=== PATIENT | female | born 1995 | race Caucasian/White ===

== ENCOUNTER → 2018-02-01 14:30 | Outpatient (CLI) | payer MEDICAID, SELFPAY ==
[2018-02-01 15:21] LABS: hCG Titer Quant., Serum < 1 mIU/mL (<9 non-preg)
[2018-02-01 15:32] LABS: Progesterone Level 4.85 ng/mL (See Comment)
[2018-02-01 18:47] LABS: Chlamydia Trachomatis by PCR Negative (Negative); Neisserai gonorrhoeae by PCR Negative (Negative); Probe Check PASS; Sample Adequacy Control PASS; Specimen Processing Control PASS
== END ==
PROVIDERS: Visit Provider Obstetrics & Gynecology
DX: Z11.3 Encounter for screening for infections with a predominantly sexual mode of transmission (principal)
CPT/HCPCS: 84144; 84702; 87491; 87591

== ENCOUNTER → 2018-03-29 14:40 | Outpatient (CLI) | payer MEDICAID, SELFPAY ==
[2018-03-29 16:42] LABS: Progesterone Level 9.73 ng/mL (See Comment)
== END ==
PROVIDERS: Visit Provider Obstetrics & Gynecology
DX: N92.6 Irregular menstruation, unspecified (principal); O20.0 Threatened abortion
CPT/HCPCS: 36415; 84144

== ENCOUNTER → 2018-04-05 16:24 | Outpatient (CLI) | payer MEDICAID, SELFPAY ==
[2018-04-05 17:28] LABS: Color, Urine Yellow (Yellow); Glucose, Dipstick Normal (Normal); Ketone-Dipstick Negative (Negative); Leukocyte Esterase-Dipstick Negative /ul (Negative); Nitrite-Dipstick Negative (Negative); Occult Blood-Urine Negative /ul (Negative); Protein-Dipstick Negative (Negative); Urine Bilirubin Dipstick Negative (Negative); Urine Clarity Clear (Clear); Urine Urobilinogen Normal (Normal)
[2018-04-05 17:54] LABS: Amphetamine Urine VISTA NEGATIVE (<1000 ng/mL); Barbiturate Urine VISTA NEGATIVE (< 200 ng/mL); Benzodiazepine Urine VISTA NEGATIVE (< 200 ng/mL); Cocaine Urine VISTA NEGATIVE (< 300 ng/mL); Ecstacy Urine VISTA NEGATIVE (< 500 ng/mL); Methadone Urine VISTA NEGATIVE (< 300 ng/mL); PCP Urine VISTA NEGATIVE (< 25 ng/mL); THC Urine VISTA NEGATIVE (< 50 ng/mL); Vista UDS pH Range 6
[2018-04-05 17:55] LABS: Absolute Lymphocyte Count 2.68 X10^3/ul (0.83-4.51); Absolute Neutrophil Count 11.2 X10^3/uL (2.0-7.7); Basophil# 0.02 X10^3/uL; Basophil% 0.1 % (0-1); Eosinophil# 0.05 X10^3/uL; Eosinophils% 0.3 % (0-5); Hematocrit 39.9 % (37-47); Hemoglobin 13.8 g/dl (12.0-15.0); Lymphocyte # 2.68 X10^3/ul (4.0); Lymphocyte % 17.8 % (19-41); Mean Corp Hgb Conc 34.6 g/gl (32-36); Mean Corpuscular Volume 81.1 fL (81-99); Monocyte# 1.08 X10^3/uL; Monocyte% 7.2 % (0-10); Neutrophil # 11.17 X10^3/uL (2.7-7.7); Neutrophil % 74.1 % (47-70); Platelet Count 334 K/mm3 (150-450); RBC Distribution Width CV 12.5 % (11.6-14.6); RBC Distribution Width SD 36.1 fl (35.1-43.9); Red Blood Count 4.92 M/mm3 (4.2-5.4); White Blood Count 15.1 K/mm3 (4.4-11.0)
[2018-04-05 18:22] LABS: POSITIVE COUNT NO; POSITIVE DIFFERENTIAL NO; POSITIVE MORPHOLOGY NO
[2018-04-05 18:23] LABS: Thyroid Stim Hormone (TSH) 1.03 uIU/mL (0.358-3.74)
[2018-04-05 18:35] LABS: Hemoglobin A1c 5.4 % (4.2-6.3)
[2018-04-05 18:59] LABS: Chlamydia Trachomatis by PCR Negative (Negative); Neisserai gonorrhoeae by PCR Negative (Negative); Probe Check PASS; Sample Adequacy Control PASS; Specimen Processing Control PASS
[2018-04-05 19:01] LABS: HIV - WCH Non-Reactive (Nonreactive); Rubella IgG 55.4 IU/mL; Vitamin D,25 Hydroxy 21.8 ng/mL (29.95-100.01)
[2018-04-08 09:41] LABS: HEPATITIS B SURFACE AG Negative (Negative); Hep C Antibodies 0.1 s/co ratio (0.0-0.9)
[2018-04-10 12:35] LABS: HPV Reflexed? NOT INDICATED
[2018-04-12 00:14] LABS: Prenatal RPR NONREACTIVE (NONREACTIVE)
== END ==
PROVIDERS: Visit Provider Obstetrics & Gynecology
DX: Z34.81 Encounter for supervision of other normal pregnancy, first trimester (principal); Z12.4 Encounter for screening for malignant neoplasm of cervix; Z11.3 Encounter for screening for infections with a predominantly sexual mode of transmission
CPT/HCPCS: 36415; 80307; 81002; 82306; 83036; 84443; 85025; 86703; 86762; 86803; 87340; 87491; 87591; 87624; 88175; G0145

== ENCOUNTER 2018-04-30 17:22 | Emergency (ER) | payer MEDICAID, SELFPAY ==
[2018-04-30 17:23] VITALS: BP 161/101; PULSE 98; RESP 18; TEMP 36.2; O2SAT 100; BMI 30.5
[2018-04-30 17:42] LABS: Bacteria 0 SEEN /hpf (None Seen); Mucous, Urine 0 SEEN /hpf (<or=2+); Red Blood Cells-Urine 0 SEEN /hpf (0-5)
[2018-04-30 17:52] LABS: Color, Urine Yellow (Yellow); Glucose, Dipstick Normal (Normal); Ketone-Dipstick Negative (Negative); Leukocyte Esterase-Dipstick Negative /ul (Negative); Nitrite-Dipstick Negative (Negative); Occult Blood-Urine Negative /ul (Negative); Protein-Dipstick Negative (Negative); Urine Bilirubin Dipstick Negative (Negative); Urine Clarity Clear (Clear); Urine Urobilinogen Normal (Normal)
[2018-04-30 18:00] VITALS: BP 141/101
[2018-04-30 18:00] LABS: Squamous Epithelial Cells - UA 0-5 SEEN /hpf (5-10); White Blood Cells 0-5 SEEN /hpf (0-5)
[2018-04-30 18:21] LABS: Absolute Lymphocyte Count 2.35 X10^3/ul (0.83-4.51); Absolute Neutrophil Count 8.9 X10^3/uL (2.0-7.7); Basophil# 0.02 X10^3/uL; Basophil% 0.2 % (0-1); Eosinophils% 0.8 % (0-5); Hematocrit 37.8 % (37-47); Hemoglobin 12.9 g/dl (12.0-15.0); Lymphocyte # 2.35 X10^3/ul (4.0); Lymphocyte % 18.9 % (19-41); Mean Corp Hgb Conc 34.1 g/gl (32-36); Mean Corpuscular Hgb 28.2 pg (27.0-32.0); Mean Corpuscular Volume 82.5 fL (81-99); Mean Platelet Vol. 8.7 fl (6.2-12.0); Monocyte# 1.05 X10^3/uL; Monocyte% 8.4 % (0-10); Neutrophil # 8.87 X10^3/uL (2.7-7.7); Neutrophil % 71.3 % (47-70); Platelet Count 252 K/mm3 (150-450); RBC Distribution Width CV 12.8 % (11.6-14.6); RBC Distribution Width SD 38.4 fl (35.1-43.9); Red Blood Count 4.58 M/mm3 (4.2-5.4); White Blood Count 12.4 K/mm3 (4.4-11.0)
[2018-04-30 18:25] LABS: POSITIVE COUNT NO; POSITIVE DIFFERENTIAL NO; POSITIVE MORPHOLOGY NO
[2018-04-30 18:32] LABS: Anion Gap 8 (5-15); BUN 4 mg/dL (7-18); BUN/Creat Ratio 6.4 RATIO (10-20); Calcium,Total 8.9 mg/dL (8.5-10.1); Chloride 106 mmol/L (98-107); Creatinine, Serum 0.62 mg/dL (0.55-1.02); EST Glomerular Filtration Rate 126 mL/min (>60); Est Glom Filt Rate - Afr Amer 153 mL/min (>60); Glucose 94 mg/dL (74-106); Potassium 4.1 mmol/L (3.5-5.1); Sodium Level 135 mmol/L (136-145)
[2018-04-30] MEDS: 0.9% Normal Saline 1,000 ML 150 ML IV (18:53)
[2018-04-30] MEDS: Morphine 4 MG/ML Syringe IV (18:53)
[2018-04-30] MEDS: Ondansetron 4 MG/2 ML Vial IV (18:53)
[2018-04-30 19:05] VITALS: BP 120/90; PULSE 84; RESP 18; TEMP 36.9; O2SAT 100
[2018-04-30 19:06] VITALS: BP 120/90
--- NOTE | 2018-04-30 19:52 | ED.RN ---
us at bedside for dr. menendez to observe fetus.
--- NOTE | 2018-04-30 19:53 | ED.DCSUM_ITS ---
- ER Visit Summary Date of Service: 04/30/18 Chief Complaint: Abdominal pain History of Present Illness: The patient is a 22 F with a low-grade temperature approximately 99 for the past couple of weeks. States she overall just did not feel well. She had nausea and vomiting for 3 days but that seemed to resolve. Today she complained of abdominal pain and points to both epigastric as well as right lower quadrant area. Patient is currently 10 weeks . She has not had bleeding or spotting. She called the nurse for her RETAIL DEPARTMENT MANAGER who encouraged her to come in to make sure she did not have appendicitis. Physical Examination: Vital signs significant for blood pressure of 161/101, otherwise unremarkable. Patient is lying in bed no acute distress. Head neck examination normal. Heart is regular rate and rhythm. Lungs sounds are clear. Abdomen is soft with epigastric tenderness. On initial exam there is no significant right lower tenderness. There is no guarding or rebound. Test Results: CBC was a white count 12.4 with no significant left shift. C hemistry studies normal. LFTs normal. Urinalysis normal. Emergency Department Course and Treatment: Patient was given morphine, Zofran, followed by Phenergan for continued nausea. Blood pressures have been labile throughout her ED stay with readings of 150/93, 120/90, 141/101, 126/90. Bedside ultrasound was performed and cardiac motion is noted in the fetus. Test results are discussed with patient and at bedside. At this time they would prefer to avoid radiation from CT scan if at all possible. I spoke with Dr. Sam, on-call for the patient's RETAIL DEPARTMENT MANAGER. She will see the patient in the office tomorrow for repeat abdominal exam. If symptoms are not improved or worsened at that time, she will contact surgery for evaluation. Treatment Plan: [] Disposition: Discharge Impression: 1. Abdominal pain 2. First trimester This note was generated with [employer] dictation software. It may contain incorrect words, spelling, and punctuation that were not noted in review of the chart prior to signing ED Disposition - Plan for ED Patient: Disposition: Home or Assisted Living Instructions: ED Abdominal Pain Appendx Poss Referrals: Daiana Sam MD [STAFF PHYSICIAN] - 1 Day
[2018-04-30 19:55] LABS: AST(SGOT) 28 U/L (15-37); Alanine Aminotransfer ALT/SGPT 23 U/L (13-56); Albumin, Serum 3.2 g/dL (3.2-5.0); Alkaline Phosphatase 91 U/L (45-117); Bilirubin, Direct 0.07 mg/dL (0.00-0.30); Globulin 4.1 g/dL (2.2-4.2); Lipase 162 U/L (73-393); Protein, Total 7.3 g/dL (6.4-8.2)
[2018-04-30 20:23] VITALS: BP 150/93; PULSE 83; RESP 15; TEMP 36.8; O2SAT 100
[2018-04-30] MEDS: proMETHazine 25 MG/ML Syringe 6.25 MG IV (20:24)
--- NOTE | 2018-04-30 21:15 | DCINST.ED_ITS ---
ED Disposition - Plan for ED Patient: Disposition: Home or Assisted Living Instructions: ED Abdominal Pain Appendx Poss Referrals: Daiana aSm MD [STAFF PHYSICIAN] - 1 Day
--- NOTE | 2018-04-30 21:15 | ED.DEP ---
ED Disposition - Plan for ED Patient: Disposition: Home or Assisted Living Instructions: ED Abdominal Pain Appendx Poss Referrals: Daiana Sam MD [STAFF PHYSICIAN] - 1 Day
[2018-04-30] MEDS: Ondansetron ODT 4 MG Tablet PO (21:34)
[2018-04-30 21:40] VITALS: BP 120/74; PULSE 79; RESP 17; O2SAT 100
--- NOTE | 2018-04-30 21:41 | ED.RN ---
IV DC'ED, CATHETER INTACT, SMALL GAUZE DRESSING PLACED. DISCHARGE INSTRUCTIONS GIVEN TO AND REVIEWED WITH PATIENT, PATIENT DENIES QUESTIONS OR CONCERNS AND VOICES UNDERSTANDING OF DISCHARGE INSTRUCTIONS. PT AMBULATES OUT OF ROOM WITHOUT DIFFICULTY.
== END 2018-04-30 21:42 | disposition home or self-care (01) ==
PROVIDERS: Emergency Provider Emergency Medicine
DX: O26.891 Other specified pregnancy related conditions, first trimester (principal); R10.9 Unspecified abdominal pain; Z3A.10 10 weeks gestation of pregnancy
CPT/HCPCS: 80048; 80076; 81001; 83690; 85025; 96361; 96374; 96375; 99283; J7030; A4216; J2405

== ENCOUNTER 2018-06-04 16:59 | Emergency (ER) | payer MEDICAID, SELFPAY ==
[2018-06-04 17:00] VITALS: BP 147/90; PULSE 104; RESP 16; TEMP 36.1; O2SAT 100; BMI 30.5
--- NOTE | 2018-06-04 17:32 | ED.DCSUM_ITS ---
- ER Visit Summary Date of Service: 06/04/18 Chief Complaint: Periumbilical abdominal discomfort History of Present Illness: The patient is a 22 F currently 16 weeks. Ab0. Under the care of Dr. Adrian Albert of [employer] IN [employer]PER[employer]. Patient's had intermittent periumbilical abdominal pain for weeks. She states that more stabbing today. She denies any dysuria. Currently no vaginal bleeding. States that she has had an ultrasound showing a live intrauterine . Denies any discharge. No fever. No right lower quadrant abdominal pain. She has had some nausea without vomiting or diarrhea. States she has not a bowel movement for approximately a week. Physical Examination: Well-appearing young female. Vital signs are stable. She is afebrile. She is in no distress. H EENT exam normal. Moist his membranes. Neck nontender no lymphadenopathy. Lungs clear to auscultation bilaterally. Heart regular rate and rhythm no murmur. Abdomen soft. Nondistended. Normal bowel sounds no peritoneal signs. Gravid nontender uterus. She describes his pain is periumbilical. It is really not tender. Both the right upper and right lower quadrants are completely nontender. No McBurney's point tenderness. No hernias or masses. No signs of obstruction. Soft with normal bowel sounds. She is moving all 4 extremities. Neurovascular intact. Calves nontender without edema. Back is nontender. Neurologically she is awake alert with no focal motor deficits. Test Results: heart tones equal nurse was unable but on transvaginal ultrasound showed a single live IUP with a heart rate of 146. Otherwise no acute abnormalities read by the radiology Urinalysis shows no acute abnormality. No infection. Emergency Department Course and Treatment: Clinically patient has a benign exam. Her history is consistent with constipation. I do not want to obtain a KUB at this time due to her . Repeat exam at 2109 patient is doing well. She will be discharged home. Follow-up with her L[employer] IN SUPERVISOR. Treatment Plan: Prune juice and fiber for constipation. Disposition: Discharge Impression: Abdominal pain secondary to constipation 16 weeks This note was generated with [employer] dictation software. It may contain incorrect words, spelling, and punctuation that were not noted in review of the chart prior to signing ED Disposition - Plan for ED Patient: Referrals: NOT,DEFINED [NON-STAFF] -
--- NOTE | 2018-06-04 17:47 | US_ITS ---
STUDY: SECOND AND THIRD TRIMESTER OBSTETRICAL ULTRASOUND - LIMITED REASON FOR EXAM: Female, 22 years old. Right lower quadrant pain extending to the umbilicus LMP: 02/13/2018 PRIOR ULTRASOUND: None. TECHNIQUE: Transabdominal TECHNICAL QUALITY: Adequate. FINDINGS: There is a single intrauterine fetus. The fetus is in a breech presentation. There is demonstrated cardiac activity with a heart rate of 146 bpm. There is a normal amniotic fluid volume. The largest amniotic fluid pocket measures 8.0 x 3.1 cm. The amniotic fluid index (RADHA) was not calculated. The placenta is anterior in location and is not low lying. The cervix measures 3.1 cm in length. BIOMETRY: BPD: 3.46 cm: 16 weeks, 5 days HC: 13.18 cm: 16 weeks, 6 days AC: 10.27 cm: 16 weeks, 2 days FL: 1.8 cm: 15 weeks, 3 days Age by ultrasound: 16 weeks, 3 days. MARITZA by LMP: 11/16/2018. age by LMP: 15 weeks, 6 days. MARITZA by current US: 11/20/2018. Estimated weight: 139 grams, +/- 20 grams, 45th percentile. Imaging of the bilateral adnexa show no obvious cystic or solid mass. Both maternal ovaries are normal in appearance. No focal fluid collection is seen. A localized muscular contraction of the anterior uterus is identified on a couple of the images. US/OB Limited With Biometrics IMPRESSION: 1. Single live intrauterine , as above. Of note, a full anatomic survey was NOT performed. 2. No obvious adnexal masses. Electronically Signed: Pablo Staton MD at 19:39 EDT , Service support ,
[2018-06-04 17:53] LABS: Bacteria 0 SEEN /hpf (None Seen); Mucous, Urine 0 SEEN /hpf (<or=2+); Red Blood Cells-Urine 0 SEEN /hpf (0-5); White Blood Cells 0 SEEN /hpf (0-5)
[2018-06-04 17:56] LABS: Color, Urine Yellow (Yellow); Glucose, Dipstick Normal (Normal); Ketone-Dipstick Negative (Negative); Leukocyte Esterase-Dipstick Negative /ul (Negative); Nitrite-Dipstick Negative (Negative); Occult Blood-Urine Negative /ul (Negative); Protein-Dipstick Negative (Negative); Urine Bilirubin Dipstick Negative (Negative); Urine Clarity Clear (Clear); Urine Urobilinogen Normal (Normal); Urine pH 6.5 (5.0 - 8.0)
[2018-06-04 18:03] LABS: Squamous Epithelial Cells - UA 0-5 SEEN /hpf (5-10)
--- NOTE | 2018-06-04 21:12 | ED.DEP ---
ED Disposition - Plan for ED Patient: Disposition: Home or Assisted Living Instructions: ED Constipation Referrals: Jennifer Dubon MD [STAFF PHYSICIAN] - 3-5 Days if not improving Additional Instructions: Plenty of fruits, fiber and fluids for your constipation. Bottle of magnesium citrate and should have a bowel movement within 2-4 hours. Follow-up with your PATHOLOGY LABORATORY AIDE if not improving. Your ultrasound was normal and your urinalysis was normal also.
[2018-06-04 21:32] VITALS: PULSE 79; RESP 18; O2SAT 99
[2018-06-04] MEDS: Magnesium Citrate 300 ML PO (21:32)
--- NOTE | 2018-06-04 21:33 | ED.RN ---
THIS NURSE REVIEWED D/C INSTRUCTIONS WITH PT. PT VERBALIZED UNDERSTANDING OF INSTRUCTIONS. [facility] SENT HOME WITH PT PER DR BRITTON INSTRUCTIONS. PT DENIES FURTHER NEEDS OR QUESTIONS AT THIS TIME. PT AMBULATES FROM ROOM ON OWN WITHOUT ASSISTANCE FROM STAFF
== END 2018-06-04 21:34 | disposition home or self-care (01) ==
PROVIDERS: Emergency Provider Emergency Medicine; Family Provider Physician Assistant; PCP Physician Assistant
DX: O26.892 Other specified pregnancy related conditions, second trimester (principal); K59.00 Constipation, unspecified; Z3A.16 16 weeks gestation of pregnancy
CPT/HCPCS: 76816; 81001; 99282

== ENCOUNTER → 2018-06-24 15:48 | Outpatient (CLI) | payer MEDICAID, SELFPAY ==
[2018-06-04 17:00] VITALS: BMI 30.5
== END ==
PROVIDERS: Family Provider Physician Assistant; PCP Physician Assistant; Referring Provider Obstetrics & Gynecology; Visit Provider Obstetrics & Gynecology
DX: Z34.82 Encounter for supervision of other normal pregnancy, second trimester (principal)

== ENCOUNTER 2018-07-01 16:22 | Emergency (ER) | payer MEDICAID, SELFPAY ==
[2018-07-01 16:22] VITALS: BP 138/81; PULSE 116; RESP 18; TEMP 36.4; O2SAT 100; BMI 29.5
[2018-07-01] MEDS: 0.9% Normal Saline 1,000 ML 1000 ML IV ×2 (17:06→17:50)
[2018-07-01] MEDS: proMETHazine 25 MG/ML Syringe 6.25 MG IV (17:06)
[2018-07-01] MEDS: Dicyclomine 20 MG/2 ML Vial IM (17:08)
[2018-07-01 17:21] LABS: Absolute Lymphocyte Count 0.53 X10^3/ul (0.83-4.51); Basophil# 0.01 X10^3/uL; Basophil% 0.1 % (0-1); Eosinophil# 0.02 X10^3/uL; Eosinophils% 0.1 % (0-5); Hematocrit 37.9 % (37-47); Hemoglobin 13.3 g/dl (12.0-15.0); Lymphocyte # 0.53 X10^3/ul (4.0); Lymphocyte % 3.2 % (19-41); Mean Corp Hgb Conc 35.1 g/gl (32-36); Mean Corpuscular Hgb 29.1 pg (27.0-32.0); Mean Corpuscular Volume 82.9 fL (81-99); Mean Platelet Vol. 8.8 fl (6.2-12.0); Monocyte# 0.87 X10^3/uL; Monocyte% 5.3 % (0-10); Neutrophil # 14.97 X10^3/uL (2.7-7.7); Neutrophil % 90.8 % (47-70); Platelet Count 206 K/mm3 (150-450); RBC Distribution Width CV 13.4 % (11.6-14.6); RBC Distribution Width SD 40.3 fl (35.1-43.9); Red Blood Count 4.57 M/mm3 (4.2-5.4); White Blood Count 16.5 K/mm3 (4.4-11.0)
[2018-07-01 17:22] LABS: Anion Gap 9 (5-15); BUN 6 mg/dL (7-18); Calcium,Total 8.5 mg/dL (8.5-10.1); Chloride 106 mmol/L (98-107); Creatinine, Serum 0.67 mg/dL (0.55-1.02); Differential Indicated SCAN CRITERIA MET; EST Glomerular Filtration Rate 117 mL/min (>60); Est Glom Filt Rate - Afr Amer 141 mL/min (>60); Estimated Creatinine Clearance 113.73 ml/min; Glucose 89 mg/dL (74-106); POSITIVE COUNT NO; POSITIVE DIFFERENTIAL YES; POSITIVE MORPHOLOGY NO; Potassium 3.9 mmol/L (3.5-5.1); Sodium Level 137 mmol/L (136-145)
[2018-07-01 17:38] LABS: Bacteria 0 SEEN /hpf (None Seen); Red Blood Cells-Urine 0 SEEN /hpf (0-5)
--- NOTE | 2018-07-01 17:40 | ED.VISSUMM ---
- ER Visit Summary Date of Service: 07/01/18 Chief Complaint: [Vomiting and diarrhea] History of Present Illness: The patient is a 22 F [presents the emergency department with vomiting and diarrhea that started around 8 AM. Patient states she is thrown up about 7 times and has had approximately 8 watery stools. Patient describes diffuse abdominal pain and cramping. She tells me she is 20 weeks . Patient also states that her 3-year-old son started with the same illness around 3 AM but he is better already. Patient has not felt the baby move in several hours. She states she has had some mild vaginal spotting which is not been unusual for her as she is had a throughout her . She describes a cramping as kind of diffuse and all over her abdomen. Patient states she could not get comfortable because of the cramping earlier in the day. She denies any fevers. She denies urinary symptoms.] Physical Examination: [HEENT-PERRLA, EOMI. Cranial nerves II through XII grossly intact. TMs clear. Mucous membranes slightly dry. No adenopathy. Cardiovascular-regular rate and rhythm without murmur or ectopy Lungs-clear to auscultation, chest wall stable without crepitus or subcu emphysema Abdomen-normoactive bowel sounds, soft.. Patient has mild diffuse tenderness. There is no rebound, rigidity, or perineal signs. Extremities-intact ?4, normal range of motion, normal pulses, atraumatic] Test Results: [CBC with differential showed a white count of 16.5, hemoglobin 13, hematocrit 38, 0.06. Chemistries unremarkable. heart tones were 150. From prior visits it was noted that patient is O+ blood type.] Emergency Department Course and Treatment: [Patient received 2 L normal saline fluid boluses. Patient was given Phenergan and Bentyl. Overall was improved and she had no further vomiting. I did discuss case with Dr. Wesley Perez who is on-call for COMPUTER GRAPHICS ILLUSTRATOR who did not feel any further monitoring of the patient was indicated at this time. ] Treatment Plan: [Will be given a prescription for Bentyl and Phenergan. Patient advised to push fluids. Patient advised to return if worsening abdominal pain, fever, vomiting, dehydration, or condition should worsen anyway.] Disposition: [Discharged home in stable condition] Impression: [Viral gastroenteritis] This note was generated with Dragon dictation software. It may contain incorrect words, spelling, and punctuation that were not noted in review of the chart prior to signing ED Disposition - Plan for ED Patient: Referrals: Raymond Green PA [Primary Care Provider] -
[2018-07-01 17:44] LABS: Differential Comment SCANNED
--- NOTE | 2018-07-01 17:44 | ED.DEP ---
ED Disposition - Plan for ED Patient: Instructions: ED Gastroenteritis Viral Prescriptions: proMETHazine tablet [Phenergan] 25 mg PO Q6H PRN PRN #10 tab PRN Reason: Nausea Dicyclomine HCl [Bentyl] 20 mg PO TIDAC #20 cap Referrals: Raymond Green PA [Primary Care Provider] - Jennifer Dubon MD [STAFF PHYSICIAN] - 3-5 Days
[2018-07-01 18:00] LABS: Color, Urine Yellow (Yellow); Glucose, Dipstick Normal (Normal); Leukocyte Esterase-Dipstick Negative /ul (Negative); Nitrite-Dipstick Negative (Negative); Occult Blood-Urine Negative /ul (Negative); Protein-Dipstick 30 mg/dl (Negative); Specific Gravity, Urine 1.025 (1.002-1.030); Urine Bilirubin Dipstick Negative (Negative); Urine Clarity Clear (Clear); Urine Urobilinogen Normal (Normal)
[2018-07-01 18:01] LABS: Ketone-Dipstick 150 mg/dl (Negative)
[2018-07-01 18:37] VITALS: PULSE 83; RESP 16
[2018-07-01 19:13] LABS: Mucous, Urine 2+ /hpf (<or=2+)
[2018-07-01 19:15] LABS: Squamous Epithelial Cells - UA 0-5 SEEN /hpf (5-10); Transitional Epithelial - Ur 0 SEEN /hpf (0-5); White Blood Cells 0-5 SEEN /hpf (0-5)
[2018-07-01] MEDS: proMETHazine 25 MG/ML Syringe 12.5 MG IV (19:36)
[2018-07-01] MEDS: Morphine 2 MG/ML Syringe IV (19:36)
[2018-07-01 21:06] VITALS: BP 117/67; PULSE 103; RESP 16; O2SAT 100
== END 2018-07-01 21:10 | disposition home or self-care (01) ==
LOC: ED 16:38
PROVIDERS: Emergency Provider Emergency Medicine; Family Provider Physician Assistant; PCP Physician Assistant
DX: O98.512 Other viral diseases complicating pregnancy, second trimester (principal); A08.4 Viral intestinal infection, unspecified; Z3A.20 20 weeks gestation of pregnancy
CPT/HCPCS: 80048; 81001; 85025; 87086; 87088; 96361; 96372; 96374; 96375; 96376; 99284; J7030; A4216

== ENCOUNTER 2018-07-13 17:05 | Outpatient (CLI) | payer MEDICAID, SELFPAY ==
--- OUTSIDE RECORDS SUMMARY | 2018-07-13 17:17 | XMS RPT_ITS | CCD ---
:1995 External Reference #:[id number] Author Organization [facility] Care Team Providers Name Role Phone Unavailable Unavailable Unavailable Allergies Reported Allergen Reaction(s) Severity Date of Onset Location cefdinir [facility], Critical 11-15-2017 - [facility] [place] ([id number]) cefdinir AOF 07-12-2011 - [facility] Translations: [ [facility] CEFDINIR] Repository CEFFTON [facility] 11-15-2017 - [facility] - [facility] [place] ([id number]) cefuroxime AOF 06-24-2014 - [facility] Translations: [ Other [place] CEFUROXIME AXETIL] Repository Medications Medication Name Sig Date Prescriber Location amoxicillin / AUGMENTIN 500-125 11-16-2017 [facility] clavulanate MG TABS Take one [facility] tablet twice a day - [facility] AMOXICILLIN-POT ([id number]) CLAVULANATE [id number] [facility] clindamycin CLINDAMYCIN HCL 150 11-15-2017 Mera José [facility] MG CAPS take one PA-C [facility] tablet 4 times per - Quick Care day [place] (44383) CLINDAMYCIN HCL [id number] Mera José PA-C CLINDAMYCIN HCL 150 MG 11-15-2017 Mera José PA-C [facility] CAPS take one tablet 4 [facility] - times per day [facility] [place] CLINDAMYCIN HCL (68161) [id number] Mera José PA-C naproxen NAPROSYN 500 MG TABS take once 11-15-2017 [facility] Orth[facility]edic daily NAPROXEN Center - [facility] [place] [phone] Mera José ([id number]) PA-C NAPROSYN 500 MG TABS take once daily 11-15-2017 [facility] [place] - NAPROXEN [id number] [facility] [place] (77939) Mera José PA-C sulfamethoxazole / BACTRIM DS 800-160 MG TABS Take 11-16-2017 [facility] trimethoprim 1 tablet twice a day [facility] SULFAMETHOXAZOLE-TRIMETHOPRIM [facility] Center - [phone] [facility] (06700) traMADol TRAMADOL HCL 50 MG TABS take 11-15-2017 [facility] twice a day TRAMADOL [facility] HCL [id number] [facility]-C [facility] [place] (18126) TRAMADOL HCL 50 MG TABS take twice a 11-15-2017 [facility] [place] - day TRAMADOL HCL Quick [facility] [place] (51731) [id number] Mera José PA-C Problems Active Problems Category Problem Name Status Date Location Abdominal pain Unspecified abdominal Active 01-29-2018 [facility] pain (02473) Hemorrhage during Threatened Active 03-29-2018 [facility] ; abruptio (24920) placenta; placenta previa Mood disorders Major depressive Active 06-16-2017 [facility] disorder, recurrent, (36688) mild Nausea and vomiting Nausea Active 01-13-2018 - [facility] (33939) Other complications of Other specified Active 03-25-2018 [facility] related (99863) conditions, first trimester Other complications of Other specified Active 03-25-2018 [facility] related (79532) conditions, first trimester Other connective tissue Prepatellar bursitis Active 11-15-2017 - [facility] disease [facility] [place] [facility] [place] (90706) Other upper respiratory Acute pansinusitis, Active 03-25-2018 [facility] infections unspecified (08544) Residual codes; Less than 8 weeks Active 03-25-2018 [facility] unclassified gestation of (62453) Past or Other Problems Category Problem Name Status Date Location Allergic reactions Allergy status to Completed 11-13-2017 [facility] other drugs, (29965) medicaments and biological substances status Other connective Prepatellar Completed 11-13-2017 [facility] tissue disease bursitis, right knee (08661) Other connective Prepatellar Completed 11-13-2017 - [facility] tissue disease bursitis, right knee (70667) Other non-traumatic Pain in right knee Completed 11-13-2017 - [facility] joint disorders (41645) Other non-traumatic Pain in right knee Completed 11-13-2017 - [facility] joint disorders (24646) Residual codes; Less than 8 weeks 03-25-2018 - [facility] unclassified gestation of (05031) Unclassified Problem [facility] (58162) Results Result Name Value Range Unit Interpretation Flag Date Location clinical summary: hmspatientid on null OOP Invalid 11-16-2017 - [facility] Interpretation Code 11-16-2017 [facility] (29889) QCO Invalid 11-15-2017 [facility] Interpretation Code 11-15-2017 [facility] (35333) ed note on 2018-03-29 ED NOTE HNO ID: [id number]: Trudi Normal 03-29-2018 [facility] ([id number]) (Rn) LLOYD Duncanervice: NursingAuthor Type: Registered NurseType: ED NotesFiled: 03/29/2018 4:13 AMNote Text: VSS, IV removed. Patient is aware of discharge papers, follow up care andwhen to seek medical attention. She states that her father in law is inthe waiting room and will take her home and be supportive for her. Ptambulated in stable condition to leave ER. ED NOTE HNO ID: [id number] Normal 03-29-2018 [facility] (54679) Author: Trudi (Rn) [place] RN Service: Nursing Author Type: Registered Nurse Type: ED Notes Filed: 03/29/2018 3:21 AM Note Text: U/S at bs. ED NOTE HNO ID: [id number]: Normal 03-29-2018 [facility] (46067) Marium (Rn) LLOYD Sousaervice: NursingAuthor Type: Registered NurseType: ED NotesFiled: 03/29/2018 1:03 AMNote Text:Patient is 6 weeks . Had appoint with PCP to confirm .Patient noticed large amount of blood to toilet paper when she wiped usingthe bathroom one hour ago. Nothing in her under wear. Reports a littlecramping. type and screen on 2018-03-29 ABO/RH(D) O POSITIVE Normal 03-29-2018 [facility] (78637) Comment: Performed By: #### JOS COPELAND CMP ####[facility] [id number] [phone] ed prov note on 2018-03-29 Protein mass HNO ID: [id number]: Giuliano Normal 03-29-2018 [place] JUANIS Khalilervice: (none)Author Hospital Type: PhysicianType: ED Provider ([id number]) NotesFiled: 03/29/2018 3:49 AMNote Text:ED Provider NotePatient Name: Malena PosadaskatjagMRN: [id number] DATE: 03/29/18HistoryPatient presents with:Bleeding With PregnancyHistory provided by: PatientLanguage wastewater superintendent used: NoVaginal BleedingQuality: Bright redSeverity: MildOnset quality: SuddenTiming: ConstantProgression: UnchangedChronicity: NewPossible : yesContext: not after intercourse, not after urination, not at rest, notduring intercourse, not during urination, not foreign body, not genitaltrauma and not spontaneouslyRelieved by: NothingWorsened by: NothingIneffective treatments: None triedAssociated symptoms: no abdominal pain, no back pain, no dizziness, nodyspareunia, no dysuria, no fatigue, no fever, no nausea and no vaginaldischargeRisk factors: no bleeding disorder, no hx of ectopic , no hx ofendometriosis, no gynecological surgery, does not have multiple partners,no new sexual partner, no ovarian cysts, no ovarian torsion, no PID, noprior miscarriage and no terminated pregnanciesPAST MEDICAL HISTORYDiagnosis Date- NEGATIVE MEDICAL HISTORY- Trauma 02/07/[address] walking dogPAST SURGICAL HISTORYProcedure Laterality Date- NONEFAMILY HISTORYProblem Relation Age of Onset- Hypertension Mother- Hypertension FatherSocial HistorySocial History Main Topics- Smoking status: Never Smoker- Smokeless tobacco: Never Used- Alcohol use No- Drug use: No- Sexual activity: Yes Partners: Male control/ protection: CondomALLERGIESAllergen Reactions- Ceftin [Cefuroxime * GI Upset, Other: See Comments dizziness- Omnicef [Cefdinir] GI UpsetReview of SystemsConstitutional: Negative. Negative for fatigue and fever.HENT: Negative.Eyes: Negative.Respiratory: Negative.Cardiovascular: Negative.Gastrointestinal: Negative. Negative for abdominal pain and nausea.Genitourinary: Positive for vaginal bleeding. Negative for dyspareunia,dysuria and vaginal discharge.Musculoskeletal: Negative. Negative for back pain.Skin: Negative.Neurological: Negative. Negative for dizziness.Psychiatric/Behavioral: Negative.Physical ExamBP 141/88 Pulse 92 Temp (Src) 97.4 (Oral) Resp 16 Wt 178 lb(80.7kg) SpO2 100%Physical ExamConstitutional: She is oriented to person, place, and time. Vital signsare normal. She appears well-developed and well-nourished. She is active.HENT:Head: Normocephalic and atraumatic.Right Ear: External ear normal.Left Ear: External ear normal.Nose: Nose normal.Mouth/Throat: Oropharynx is clear and moist.Eyes: Pupils are equal, round, and reactive to light. Conjunctivae, EOMand lids are normal. Lids are everted and swept, no foreign bodies found.Neck: Trachea normal and normal range of motion. Neck supple.Cardiovascular: Normal rate, regular rhythm, normal heart sounds andintact distal pulses.Pulmonary/Chest: Effort normal and breath sounds normal.Abdominal: Soft. Bowel sounds are normal.Musculoskeletal: Normal range of motion.Neurological: She is alert and oriented to person, place, and time. Shehas normal strength and normal reflexes. No cranial nerve deficit orsensory deficit. She displays a negative Romberg sign. GCS eye subscore is4. GCS verbal subscore is 5. GCS motor subscore is 6.Skin: Skin is warm and dry.Psychiatric: She has a normal mood and affect.Nursing note and vitals reviewed.Diagnostic TestingED Labs Ordered and ReviewedCBC + DIFF - Abnormal; Notable for the following: Result Value Ref Range WBC 15.23 (*) 3.70 - 11.00 k/uL MPV 8.6 (*) 9.0 - 12.7 fL Abs Neut (ANC) 10.05 (*) 1.45 - 7.50 k/uL Abs [place] 1.26 (*) <0.87 k/uL All other components within normal limitsHCG QUAL BLDCOMP METABOLIC PANELProceduresED Course / Clinical ImpressionMDM / Disposition / [id number]-irgs-bim female says she is 6 weeks with some vaginal spottingthat started today apparently says that in January she had a pregnancytest that was positive although I can't find a positive test inNovember, she comes in stating she's been spotting she told me that she isconfirmed by her primary care doctor 6 weeks ago however alsotold the nurses that she has an appointment with her PCP to confirm thepregnancy. No chest pain or shortness of breath no fevers chills nauseavomiting or diarrhea no double vision or blurry vision no numbness ortingling no other constitutional signs or symptomsPhysical examAfebrile vital signs are stableCardiac regular rate rhythm S1-S2 rubs murmurs gallopsPulmonary exam clear to auscultation no rales rhonchi or cracklesAbdomen is soft nontender nondistended bowel sounds present nohepatosplenomegalyLymphatics no adenopathyMuscular skeletal no cyanosis clubbing edemaSkin clean dry and intactNeurological exam is otherwise nonfocalCCU labs ordered and a serum qualitative test is been orderedResults for orders placed or performed during the hospital encounter of03/29/18-HCG QUAL BLD Result Value Ref Range HCG, Qualitative Positive (A) Negative-COMP METABOLIC PANEL Result Value Ref Range Protein, Total 7.0 6.3 - 8.0 g/dL Albumin 4.2 3.9 - 4.9 g/dL Calcium 9.1 8.5 - 10.2 mg/dL Bilirubin, Total 0.2 0.2 - 1.3 mg/dL Alkaline Phosphatase 103 34 - 123 U/L AST 16 13 - 35 U/L Glucose 96 74 - 99 mg/dL BUN 5 (L) 7 - 21 mg/dL Creatinine 0.76 0.58 - 0.96 mg/dL Sodium 137 136 - 144 mmol/L Potassium 3.8 3.7 - 5.1 mmol/L Chloride 103 97 - 105 mmol/L CO2 24 22 - 30 mmol/L Anion Gap 10 9 - 18 mmol/L ALT 24 7 - 38 U/L eGFR- >60 eGFR-All Other Races >60 .-CBC + DIFF Result Value Ref Range WBC 15.23 (H) 3.70 - 11.00 k/uL RBC 4.81 3.90 - 5.20 m/uL Hemoglobin 13.2 11.5 - 15.5 g/dL Hematocrit 38.5 36.0 - 46.0 % MCV 80.0 80.0 - 100.0 fL MCH 27.4 26.0 - 34.0 pG MCHC 34.3 30.5 - 36.0 g/dL RDW-CV 12.7 11.5 - 15.0 % Platelet Count 302 150 - 400 k/uL MPV 8.6 (L) 9.0 - 12.7 fL Neut% 65.9 % Abs Neut (ANC) 10.05 (H) 1.45 - 7.50 k/uL Lymph% 25.0 % Abs Lymph 3.80 1.00 - 4.00 k/uL [place]% 8.3 % Abs [place] 1.26 (H) <0.87 k/uL Eosin% 0.5 % Abs Eosin 0.08 <0.46 k/uL Baso% 0.3 % Abs Baso 0.04 <0.11 k/uL-HCG QUANTITATIVE Result Value Ref Range hCG Quantitative, Blood 30,688.0 (H) <5.0 mU/mL-TYPE + SCREEN Result Value Ref Range ABO/RH(D) O POSITIVE Antibody Screen NEG Type+Scr Expiration 04/01/2018 Order Type Blood Bank Blood Bank Historical Ab Scr Status NEGATIVEUltrasound is reassuring O+ blood no need for RhoGAM at this point she hasvaginal bleeding with an IUP threatened miscarriage discharge her home tofollow-up with her OB/GYNDiagnostic impression#1 threatened miscarriageSIGNATURE: Marshall Shah MD03/29/18 [id number] office visit: new - 1st visit with practice, rm: 1 on null Protein mass conc Done Invalid 11-15-2017 - [facility] Interpretation Code 11-15-2017 [facility] ([id number]) NEGATED: Done Invalid 11-15-2017 - [facility] Highlighted Interpretation Code 11-15-2017 [facility] Center - Quick conc [facility] [place] (89016) Tobacco smoking never smoker Invalid 11-15-2017 - [facility] status NHIS Interpretation Code 11-15-2017 [facility] (33899) NEGATED: never smoker Invalid 11-15-2017 - [facility] Highlighted Interpretation Code 11-15-2017 [facility] - Quick smoking status Amol Jacobo NYIS (47699) us preg transvag <14 weeks on 2018-03-29 US PREG * * *Final Report* * *DATE OF Normal 03-29-2018 [place] TRANSVAG <14 EXAM: Mar 29 2018 3:38AM [facility] 1034 - Hospital WEEKS US PREG TRANSVAG <14 WEEKS / (03904) REASON: Pelvic pain, positive beta-HCG, 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 Images were obtained and stored in a permanent archive.RESULT:Uterus: -Orientation: Retroverted. -Size: 7.6 x 5.0 x 5.2 cm (CC x AP x TR). -Myometrium: Normal, homogeneous echotexture. No focal lesions identified. -Endometrial cavity: There is a single intrauterine with a normal-appearing gestational sac, a yolk sac and a pole. There is a small hypoechoic perigestational sac collection compatible with a subchorionic hemorrhage, measuring up to 0.7 x 0.2 x 0.6 cm. -: The crown-rump length measures 0.61 cm, corresponding to gestational age of 6 weeks 3 days. The yolk sac measures 0.31 cm in diameter. heart tones were seen with a regular rhythm on real time. The estimated heart rate by M-mode is 121 beats/min. -Cervix: Normal.Right ovary: -Size: 3.3 x 2.5 x 2.5 cm. -Complex cyst: None. -Solid mass: None. -Comments: Small simple cyst measuring 1.7 x 1.7 x 1.7 cm. Normal intraovarian color flow was demonstrated on Doppler.Left ovary: -Size: 2.3 x 1.4 x 1.3 cm. -Complex cyst: None. -Solid mass: None. -Comments: Normal ovarian follicles seen. Normal color flow was demonstrated on Doppler.Other: There are no adnexal masses or pelvic free fluid.Ultrasound estimation of gestational age:MA: 6 weeks 3 daysEDD: 11/19/2018IMPRESSION:Single, live intrauterine with an estimated gestational age of 6 weeks 3 days by ultrasound measurements. heart rate 121 bpm.Small subchorionic hemorrhage found.Small simple cyst in the right ovary.Blower Installer: ANUPAMA Transcribe Date/Time: Mar 29 2018 3:39ADictated by : SIRI NEWTON MDThis examination was interpreted and the report reviewed and electronically signed by: SIRI NEWTON MD on Mar 29 2018 3:43AM [id number] hcg, quantitative bl on 2018-03-29 HCG, Quantitative Bl [address].0 <5.0 mU/mL High 03-29-2018 [facility] ([id number]) Comment: Result Comment: QUANTITATIVE HCG NORMAL RANGESWeeks of Gestation (Weeks Since LMP)3 Weeks (5.8-71.2 mIU/mL)4 Weeks (9.5-750 mIU/mL)5 Weeks (217-7138 mIU/mL)6 Weeks (158-47308 mIU/mL)7 Weeks (3697-362007 mIU/mL)8 Weeks (86560-802127 mIU/mL)9 Weeks (70398-359013 mIU/mL)10 Weeks (26876-850834 mIU/mL)12 Weeks (06624-324001 mIU/mL)Referenced to 4th IS of [facility] Performed By: #### CBCDIF, JOSEO, CMP ####[facility] [address] [place] [phone] serum beta hcg [facility]//cnida/med/sl/lo on 2018-03-29 HCG.beta Positive Negative m[IU]/mL Critically 03-29-2018 [facility] subunit Qn abnormal (54391) Comment: Result Comment: False positives and false negatives are rare but have been described. Clinical correlation of the findings is recommended. Performed By: #### CBCDIF, ALCO, CMP ####[facility] [address] [place] [phone] office visit: new/est - 1st visit with physician, rm: 10 on null NEGATED: Done Invalid 11-16-2017 - [facility] Highlighted Interpretation Code 11-16-2017 Orthopaedic rowProtein mass [facility] (01398) NEGATED: of the knee Invalid 11-16-2017 - [facility] Highlighted on Interpretation Code 11-16-2017 Orthopaedic rowxray history 11/15/2017 [place] [facility] ([id number]) cnds on 2017-06-19 CNDS HNO ID: [id number]: Cassie Zarate Mc Normal 06-19-2017 Marcy SalService: PsychiatryAuthor Type: Hospital ([id number]) PhysicianType: Discharge SummariesFiled: 06/19/2017 9:58 AMNote Text:DISCHARGE SUMMARY BEHAVIORAL HEALTHPATIENT NAME: Malena Pike ADMISSION DATE: 06/16/2017MRN: [id number] DISCHARGE DATE: 06/19/2017ATTENDING PHYSICIAN: Cassie Liu FOR HOSPITALIZATION: Failure of outpatient psychiatric managementDISCHARGE DIAGNOSIS:mddAnxietyadhd hxOPERATIONS DURING HOSPITALIZATION: NonePROCEDURES DURING HOSPITALIZATION: No procedures performedHOSPITAL COURSE:You were admitted to [facility] inpatient Behavioral Health Unit [facility] one unit for evaluation and treatment of moodand and anxiety symptoms. While here, you were placed on routine admissionorders and encouraged to attend group and milieu therapy. You were seen bya staff physician for a physical exam and by our Mental Health team for acomprehensive psychiatric assessment. Appropriate labs were obtained andreviewed by the treatment team. You were stabilized on medication prozac.. Discharge home today 06/19/2017 [facility] medications:FLUoxetine 10 mg cap(s) (PROzac) 10 mg ORAL DAILYnicotine polacrilex 2 mg gum (NICORETTE) 2 mg ORAL q 2 H PRNLORazepam 2 mg (ATIVAN) 2 mg ORAL q 4 H PRNLORazepam 2 mg injection (ATIVAN) 2 mg INTRAMUSCULAR q 4 H PRNhaloperidol 5 mg tab(s) (HALDOL) 5 mg ORAL q 4 H PRNhaloperidol lactate 5 mg injection (HALDOL) 5 mg INTRAMUSCULAR q 4 H PRNtraZODone 50 mg tab(s) (DESYREL) 50 mg ORAL HS PRNacetaminophen 650 mg tab(s) (TYLENOL) 650 mg ORAL q 6 H PRNaluminum-magnesium hydroxide-simethicone 200-200-20 mg/5 mL 30 mL(MAALOX,MYLANTA,MAG-AL PLUS) 30 mL ORAL q 4 H PRNmagnesium hydroxide 400 mg/5 mL 30 mL (MOM) 30 mL ORAL DAILY PRNLABS AND PROCEDURES PENDING AT DISCHARGE: No pending results.CONSULTING TEAMS DURING HOSPITALIZATION: Internal Medicine:PATIENT CONDITION AT DISCHARGE: StableDISCHARGE DISPOSITION: Home/Self CareCOMPLICATIONS: NoneAt this time the patient has maximized her benefit from hospitalization..The patient denies suicidal or homicidal ideation, intent or plan and issafe for discharge.The patient voices a readiness to transition back to her home setting andhas agreed to our follow-up recommendations including medicationcompliance.SUBJECTIVE: 'i feel good on prozac now.Agrees to iop referral.Seen on rounds this am. Calm and pleasant. Dc focused. Contracts [facility]. Ok for team to reach out to family to review dx and tx plans.Gun has been removed from Home.OBJECTIVE:Any PRN's required for agitation or anxiety since last encounter: NoNew problems on the unit since the last encounter: NoAny new medication reactions since the last encounter: NoBP 131/80 Pulse 86 Temp (Src) 97.5 (Oral) Resp 16 Ht 5' 4 (1.63m) Wt 173 lb (78.5kg) SpO2 99% LMP 05/20/2017 BMI 29.68 kg/(m2).MENTAL STATUS EXAM AT DISCHARGE:Appearance: Well dressed, well groomedBehavior: AppropriateOrientation: Person, Place, Time and SituationSpeech/Language: The patient demonstrates appropriate tone, prosody,rosales, phonetics, and syntaxMood/Affect: EuthymicThought/Form: CoherentThought Content: CoherentSuicidal Ideations: No suicidal ideation, intent or plan.Homicidal Ideations: No homicidal ideation, intent or plan.Insight: AppropriateJudgment: AppropriateMemory/Cognition: IntactPsychomotor: Psychomotor activity was normalGENERAL: Alert, no distress, cooperative.NEUROLOGIC: No gross abnormal findings including cranial nerves 2-12.MUSCULOSKELETAL: Normal muscle strength, Normal muscle tone and Noinvoluntary movements.GAIT: Normal.LABORATORY DATA:The laboratory/imaging results have been reviewed.Pertinent findings since the last assessment: NoINFORMED CONSENT: Yes, completed with the Patient. Discussed the risks,benefits and alternatives to the medication(s) recommended. Consent wasgiven.DISCHARGE MEDICATION: There are no discharge medications for this patient.Is Patient Discharged on Two Active Antipsychotics? NoINFORMATION PROVIDED TO PATIENT:Substance Abuse Information GivenFUTURE APPOINTMENTS:Follow Up with PCP: Beau Castaneda MDTIME OF CARE: Discharge Management: I personally spent less than 30minutes involved in the discharge management of this patient.SIGNATURE: Cassie Astudillo DO PATIENT NAME: Malena BarakatATE: June 19, 2017 : 8:58 AM PAGER/CONTACT #: ct abdomen/pelvis w/o contrast on 2018-02-03 CT Abdomen/Pelvis w/o Patient Name: [facility]2018 [facility] ([id number]) CT Exam Date/Time 02/02/2018 23:24:[address] Abdomen/Pelvis (No PO, No IV) Ordering Physician MD SCOTT, [facility] Accession Number [id number] CPT4 Codes 43488 (CT Abdomen/Pelvis (No PO, No IV)) Reason For Exam ABDOMINAL PAIN Report CT ABDOMEN AND PELVIS WITHOUT CONTRAST CLINICAL INDICATION: ABDOMINAL PAIN TECHNIQUE: CT scan of the abdomen and pelvis without IV/oral contrast. Multiplanar reformations. COMPARISON: None FINDINGS: Solid organ evaluation limited from lack of IV contrast. Lung bases are clear. No free intraperitoneal gas seen. Liver shows no significant abnormality. Gallbladder and biliary tree appear normal. Spleen shows no significant abnormality. Adrenal glands show no significant abnormality. Kidneys show no significant abnormality. Pancreas shows no significant abnormality. Abdominal aorta is nonaneurysmal. No bowel obstruction. The appendix appears normal. No ureteral calculus seen on either side. Grossly normal ovaries. Tiny amount of free fluid in the pelvis, nonspecific. IMPRESSION: 1. Tiny amount of free fluid in the pelvis, nonspecific. Report Dictated on Final Dictated: 02/02/2018 11:31 pm Dictating Physician: MD POSADA JOHN R Signed Date and Time: 02/02/2018 11:36 pm Signed by: MD POSADA JOHN R Transcribed Date and Time: 02/02/2018 11:31 hcg,urine qual on 2018-02-03 HCG.beta subunit Negative Negative Normal 02-03-2018 [facility] ( test) Ql (U) ([id number]) Comment: Result Comment: is the most common reason for HCG in urine, althoughchoriocarcinoma, hydatidiform mole, and certain nontropho-blastic malignancies also result in detectable urinary HCGlevels. Sensitivity = 20mIU/mL. Performed By: #### UAMAC, HCGUR, UAMIC ####[address] [address] urinalysis,macro on 2018-02-03 Appearance Clear Clear Normal 02-03-2018 [facility] ([id number]) Comment: Performed By: #### UAMAC, HCGUR, UAMIC ####[address] [address] Bilirubin,Ur Negative Negative Normal 02-03-2018 [facility] ([id number]) Comment: Performed By: #### UAMAC, HCGUR, UAMIC ####[address] [address] Color Yellow Lt. Yellow Normal 02-03-2018 [facility] (42773) Comment: Performed By: #### UAMAC, HCGUR, UAMIC ####[address] [address] Glucose Ql (U) NEG (Normal) Negative Normal 02-03-2018 [facility] (39651) Comment: Performed By: #### UAMAC, HCGUR, UAMIC ####[address] [address] Ketone,Urine Negative Negative Normal 02-03-2018 [facility] (00755) Comment: Performed By: #### UAMAC, HCGUR, UAMIC ####[facility] [place] [address] Leukocytes Trace Negative Normal 02-03-2018 [facility] (42836) Comment: Performed By: #### UAMAC, HCGUR, UAMIC ####[place] [id number] [place] [address] Nitrites NEG Negative Normal 02-03-2018 [facility] (64109) Comment: Performed By: #### UAMAC, HCGUR, UAMIC ####[place] [id number] [place] [address] Occult Blood,Ur Trace Negative Normal 02-03-2018 [facility] (31472) Comment: Performed By: #### UAMAC, HCGUR, UAMIC ####[place] [address] [place] [address] pH Test strip (U) 6.5 5.0-8.0 Normal 02-03-2018 [facility] (58516) Comment: Performed By: #### UAMAC, HCGUR, UAMIC ####[place] [address] [place] [address] Specific [place],Urine 1.015 1.005-1.030 Normal 02-03-2018 [facility] (96265) Comment: Performed By: #### UAMAC, HCGUR, UAMIC ####[place] [address] [place] [address] Total Protein,Urine NEG Negative Normal 02-03-2018 [facility] (77343) Comment: Performed By: #### UAMAC, HCGUR, UAMIC ####[place] [id number] [facility] [place] [address] Urobilinogen Normal (0.2) 0-1 Normal 02-03-2018 [facility] (82814) Comment: Performed By: #### UAMAC, HCGUR, UAMIC ####[place] [id number] [facility] [place] [address] urinalysis,microscopic on 2018-02-03 Amorphous Urates Few (1-5) Negative Normal 02-03-2018 [facility] (80770) Comment: Performed By: #### UAMAC, HCGUR, UAMIC ####[place] [address] [place] [address] Bacteria Moderate (6-50) Negative Normal 02-03-2018 [facility] (56062) Comment: Performed By: #### UAMAC, HCGUR, UAMIC ####[facility] [place] [address] Epithelial Cells 6 - 10 3-5 Normal 02-03-2018 [facility] (17873) Comment: Performed By: #### UAMAC, HCGUR, UAMIC ####[facility] [place] [address] RBC LM.HPF #/area (Urine 0 - 2 0-2 Normal 02-03-2018 [facility] (64329) sed) Comment: Performed By: #### UAMAC, HCGUR, UAMIC ####[facility] [place] [address] WBC LM.HPF #/area (Urine 3 - 5 0-5 Normal 02-03-2018 [facility] (30735) sed) Comment: Performed By: #### UAMAC, HCGUR, UAMIC ####[facility] [place] [address] cbc and differential on 2018-03-29 Abs Baso 0.04 <0.11 k/uL Normal 03-29-2018 [facility] (39111) Comment: Performed By: #### CBCDIF, ALCO, CMP ####[facility] [address] [place] [phone] Abs [place] 1.26 <0.87 k/uL High 03-29-2018 [facility] (27514) Comment: Performed By: #### CBCDIF, ALCO, CMP ####[facility] Sakdeunqcf4578 [phone] Abs Neut 10.05 1.45-7.50 k/uL High 03-29-2018 [facility] (03220) Comment: Performed By: #### CBCDIF, ALCO, CMP ####[facility] Alwkfqtkmv5744 [phone] Basophils/100 WBC Auto (Bld) 0.3 % Normal 03-29-2018 [facility] (23837) Comment: Performed By: #### CBCDIF, ALCO, CMP ####[facility] [address] [place] [phone] Eosinophils Auto #/vol 0.08 <0.46 k/uL Normal 03-29-2018 [facility] (57399) (Bld) Comment: Performed By: #### CBCDIF, ALCO, CMP ####[facility] [address] [place], [place] [phone] Eosinophils/100 WBC Auto (Bld) 0.5 % Normal 03-29-2018 [facility] (52925) Comment: Performed By: #### CBCDIF, ALCO, CMP ####[place] [address]23[address] Erythrocyte distribution 12.7 11.5-15.0 % Normal 03-29-2018 [facility] (29296) width Auto Ratio (RBC) Comment: Performed By: #### CBCDIF, ALCO, CMP ####[place] [address]23[address] Hematocrit Auto Volume 38.5 36.0-46.0 % Normal 03-29-2018 [facility] (40343) Fraction (Bld) Comment: Performed By: #### CBCDIF, ALCO, CMP ####[address] Hemoglobin mass conc 13.2 11.5-15.5 g/dL Normal 03-29-2018 [facility] (d) (93004) Comment: Performed By: #### CBCDIF, ALCO, CMP ####[facility] [address] [place], [place] [phone] Lymphocytes Auto #/vol 3.80 1.00-4.00 k/uL Normal 03-29-2018 [facility] (d) (67164) Comment: Performed By: #### CBCDIF, ALCO, CMP ####[address]721[address] Lymphocytes/100 WBC Auto (Bld) 25.0 % Normal 03-29-2018 [facility] (44999) Comment: Performed By: #### CBCDIF, ALCO, CMP ####[facility] At[address] [place], [place] [phone] MCH Auto Entitic mass 27.4 26.0-34.0 pG Normal 03-29-2018 [facility] (72044) (RBC) Comment: Performed By: #### CBCDIF, ALCO, CMP ####[facility] [address] [place], [place] [address] MCHC Auto mass conc 34.3 30.5-36.0 g/dL Normal 03-29-2018 [facility] (37419) (RBC) Comment: Performed By: #### CBCDIF, ALCO, CMP ####[facility] [address] [place], [place] [phone] MCV Auto Entitic volume 80.0 80.0-100.0 fL Normal 03-29-2018 [facility] (20471) (RBC) Comment: Performed By: #### CBCDIF, ALCO, CMP ####[facility] R[address] [place], [place] [address] Monocytes/100 WBC Auto (Bld) 8.3 % Normal 03-29-2018 [facility] (97497) Comment: Performed By: #### CBCDIF, ALCO, CMP ####[facility] Beh[address]ysrh[address] [place], [place] [phone] Neutrophils/100 WBC Auto (Bld) 65.9 % Normal 03-29-2018 [facility] (78695) Comment: Performed By: #### CBCDIF, ALCO, CMP ####[facility] Sm[address] [place], [place] [address] Platelet mean volume Auto 8.6 9.0-12.7 fL Low 03-29-2018 [facility] (91926) Entitic volume (Bld) Comment: Performed By: #### CBCDIF, ALCO, CMP ####[facility] [address] [place], [place] [address] Platelets Auto #/vol (Bld) 302 150-400 k/uL Normal 03-29-2018 [facility] (67794) Comment: Performed By: #### CBCDIF, ALCO, CMP ####[facility] [address] [place], [place] [phone] RBC Auto #/vol (Bld) 4.81 3.90-5.20 m/uL Normal 03-29-2018 [facility] (27015) Comment: Performed By: #### CBCDIF, ALCO, CMP ####[facility] [address] [place] [address] WBC Auto #/vol (Bld) 15.23 3.70-11.00 k/uL High 03-29-2018 [facility] (06245) Comment: Performed By: #### CBCDIF, ALCO, CMP ####[facility] [address] [place] [address] comp metabolic panel on 2018-03-29 Albumin mass conc 4.2 3.9-4.9 g/dL Normal 03-29-2018 [facility] (14928) Comment: Performed By: #### CBCDIF, ALCO, CMP ####[place] [address] ALP enzyme act/vol 103 34-123 U/L Normal 03-29-2018 [facility] (32394) Comment: Performed By: #### CBCDIF, ALCO, CMP ####[facility] [address] [place] [address] ALT enzyme act/vol 24 7-38 U/L Normal 03-29-2018 [facility] (87472) Comment: Performed By: #### CBCDIF, ALCO, CMP ####[place] [address] Anion gap 3 molar conc 10 9-18 mmol/L Normal 03-29-2018 [facility] (69351) Comment: Performed By: #### CBCDIF, ALCO, CMP ####[facility] [address] [place] [address] AST enzyme act/vol 16 13-35 U/L Normal 03-29-2018 [facility] (10370) Comment: Performed By: #### CBCDIF, ALCO, CMP ####[place] [address] Bilirubin mass conc 0.2 0.2-1.3 mg/dL Normal 03-29-2018 [facility] (13190) Comment: Performed By: #### CBCDIF, ALCO, CMP ####[facility] [address] [place] [address] Calcium mass conc 9.1 8.5-10.2 mg/dL Normal 03-29-2018 [facility] (00050) Comment: Performed By: #### JOS COPELAND CMP ####[facility] Naqphoyola8000 [address]721[address] Chloride molar conc 103 97-105 mmol/L Normal 03-29-2018 [facility] (56934) Comment: Performed By: #### JOS COPELAND CMP ####[facility] Zebnmafsth2796 [address]721[address] CO2 molar conc 24 22-30 mmol/L Normal 03-29-2018 [facility] (67474) Comment: Performed By: #### JOS COPELAND CMP ####[facility] Qp[address]uedbal6395 [place] [address] Creatinine mass conc 0.76 0.58-0.96 mg/dL Normal 03-29-2018 [facility] (64244) Comment: Performed By: #### JOS COPELAND CMP ####[facility] Nurkeuujku2010 [address]721[address] eGFR- Amer. >60 Normal 03-29-2018 [facility] (50528) Comment: Performed By: #### JOS COPELAND CMP ####[facility] Kqxkzondug2881 [address]721[address]160 GFR/1.73 sq M predicted >60 mL/min/{1.73_m2} Normal 03-29-2018 [facility] among non-blacks MDRD (39131) vol rate/area (S/P/Bld) Comment: Result Comment: eGFR (Estimated GFR) Units of measure: mL/min/1.73 meters squaredeGFR is derived from the reexpressed MDRD Study equation using the following parameters: serum creatinine, age, gender and race. The creatinine assay has been calibrated to be traceable to IDMS.An eGFR <60 mL/min/1.73m2 for >3 months is consistent with chronic kidney disease. Refer to KDOQI guidelines for clinical interpretation.In patients with unstable renal function, e.g. those with acute kidney injury, the eGFR may not accurately reflect actual GFR. Performed By: #### JOS COPELAND, CMP ####[facility] [address] [place] [address] Glucose mass conc 96 74-99 mg/dL Normal 03-29-2018 [facility] (06163) Comment: Result Comment: The [place] [employer] (ADA) provides guidance for cutoff values for fasting glucose and random glucose. The ADA defines fasting as no caloric intake for at least 8 hours. Fasting plasma glucose results between 100 to 125 mg/dL indicate increased risk for diabetes (prediabetes).Fasting plasma glucose results greater than or equal to 126 mg/dL meet the criteria for diagnosis of diabetes. In the absence of unequivocal hyperglycemia, results should be confirmed by repeat testing. In a patient with classic symptoms of hyperglycemia or hyperglycemic crisis, random plasma glucose results greater than or equal to 200 mg/dL meet the criteria for diagnosis of diabetes.Reference: Standards of Medical Care in Diabetes 2016, [place] [employer]. Diabetes Care. 2016.39(Suppl 1). Performed By: #### JOS COPELAND CMP ####[place] [address] Potassium molar conc 3.8 3.7-5.1 mmol/L Normal 03-29-2018 [facility] (26379) Comment: Performed By: #### JOS COPELAND CMP ####[place] [address] Protein mass conc 7.0 6.3-8.0 g/dL Normal 03-29-2018 [facility] (93153) Comment: Performed By: #### CBCGAGANDEEPFJOS, CMP ####[place] [address] Sodium molar conc 137 136-144 mmol/L Normal 03-29-2018 [facility] (29392) Comment: Performed By: #### CBCGAGANDEEPFJOS CMP ####[place] [address] Urea nitrogen mass conc 5 7-21 mg/dL Low 03-29-2018 [facility] (43286) Comment: Performed By: #### CBCDIFJOSEO, CMP ####[facility] [address] [place] [address] culture urine on 2018-02-05 CULTURE 1 Organism Enterococcus ,000-90,000 Normal 02-05-2018 [facility] URINE CFU/ml 1 Health Organism Antibiotic System Result (52969) Intrp Ampicillin(ZAHIDA ) <= 2 S Ciprofloxacin(ZAHIDA) <= 0.5 S Gentamicin High Level synergy(ZAHIDA) SYN-S S Levofloxacin(ZAHIDA) = 1 S Nitrofurantoin(ZAHIDA) <= 16 S Streptomycin High Level synergy(ZAHIDA)SYN-R R Tigecycline(ZAHIDA) <= 0.12 S Vancomycin(ZAHIDA) = 1 S Comment: Order Comment: Specimen Source Comment:Urine, clean catch Performed By: #### C/UR ####[place] [address] [place] [address] [address] [place], [place] [phone] vitamin b12 on 2017-06-18 Cobalamins (Vitamin B12) 432 541-7079 pg/mL Normal 06-18-2017 [facility] (46497) Comment: Performed By: #### TSH ####[facility] [place], [place] [phone]#### FT4, B12, VITD ####[facility] [address]xax[address]ob[address] [place], [place] [phone] cbc and differential on 2018-01-29 Abs Baso <0.03 <0.11 Normal 01-29-2018 [facility] (60870) Comment: Performed By: #### CBCDIF, ALCO, CMP ####[facility] [address] [place], [place] [phone] Abs [place] 1.08 <0.87 k/uL High 01-29-2018 [facility] (06504) Comment: Performed By: #### CBCDIF, ALCO, CMP ####[facility] T[address] [place] [address] Abs Neut 7.80 1.45-7.50 k/uL High 01-29-2018 [facility] (74792) Comment: Performed By: #### CBCDIF, ALCO, CMP ####[facility] [address] [place], [place] [phone] Basophils/100 WBC Auto (Bld) 0.2 % Normal 01-29-2018 [facility] (78074) Comment: Performed By: #### CBCDIF, ALCO, CMP ####[facility] I[address] [place] [address] Eosinophils Auto #/vol 0.06 <0.46 k/uL Normal 01-29-2018 [facility] (13477) (Bld) Comment: Performed By: #### CBCDIF, ALCO, CMP ####[facility] [address]aps[address] [place] [address] Eosinophils/100 WBC Auto (Bld) 0.5 % Normal 01-29-2018 [facility] (12190) Comment: Performed By: #### CBCDIF, ALCO, CMP ####[place] [address] Erythrocyte distribution 12.6 11.5-15.0 % Normal 01-29-2018 [facility] (78710) width Auto Ratio (RBC) Comment: Performed By: #### CBCDIF, ALCO, CMP ####[place] [address] Hematocrit Auto Volume 39.9 36.0-46.0 % Normal 01-29-2018 [facility] (81536) Fraction (Bld) Comment: Performed By: #### CBCDIF, ALCO, CMP ####[facility] Bold[address]ys[address] [place] [address] Hemoglobin mass conc 13.9 11.5-15.5 g/dL Normal 01-29-2018 [facility] (d) (84847) Comment: Performed By: #### CBCDIF, ALCO, CMP ####[facility] [address]1868 [place] [phone] Lymphocytes Auto #/vol 3.16 1.00-4.00 k/uL Normal 01-29-2018 [facility] (d) (35715) Comment: Performed By: #### CBCDIF, ALCO, CMP ####[facility] [address] [place] [phone] Lymphocytes/100 WBC Auto (Bld) 26.1 % Normal 01-29-2018 [facility] (55942) Comment: Performed By: #### CBCDIF, ALCO, CMP ####[facility] [address] [place] [phone] MCH Auto Entitic mass 28.3 26.0-34.0 pG Normal 01-29-2018 [facility] (60277) (RBC) Comment: Performed By: #### CBCDIF, ALCO, CMP ####[facility] V[address] [place] [phone] MCHC Auto mass conc 34.8 30.5-36.0 g/dL Normal 01-29-2018 [facility] (33639) (RBC) Comment: Performed By: #### CBCDIF, ALCO, CMP ####[facility] Ol[address] [place] [phone] MCV Auto Entitic volume 81.3 80.0-100.0 fL Normal 01-29-2018 [facility] (20998) (RBC) Comment: Performed By: #### CBCDIF, ALCO, CMP ####[facility] [address] [place] [phone] Monocytes/100 WBC Auto (Bld) 8.9 % Normal 01-29-2018 [facility] (90688) Comment: Performed By: #### CBCDIF, ALCO, CMP ####[facility] R[address] [place] [phone] Neutrophils/100 WBC Auto (Bld) 64.3 % Normal 01-29-2018 [facility] (71038) Comment: Performed By: #### CBCDIF, ALCO, CMP ####[facility] Kaiyslzahf3867 [address]721[address]160 Platelet mean volume Auto 8.7 9.0-12.7 fL Low 01-29-2018 [facility] (19794) Entitic volume (Bld) Comment: Performed By: #### CBCDIF, ALCO, CMP ####[facility] Gnkijdyxgy1003 [address]5[address] Platelets Auto #/vol (Bld) 313 150-400 k/uL Normal 01-29-2018 [facility] (56076) Comment: Performed By: #### CBCDIF, ALCO, CMP ####[facility] [address] [place] [address] RBC Auto #/vol (Bld) 4.91 3.90-5.20 m/uL Normal 01-29-2018 [facility] (47269) Comment: Performed By: #### CBCDIF, ALCO, CMP ####[facility] [address] [place] [address] WBC Auto #/vol (Bld) 12.12 3.70-11.00 k/uL High 01-29-2018 [facility] (91886) Comment: Performed By: #### CBCDIF, ALCO, CMP ####[facility] [address] [place], [place] [phone] lipase on 2018-01-29 Lipase enzyme act/vol 30 16-61 U/L Normal 01-29-2018 [facility] (18793) Comment: Performed By: #### CBCDIF, ALCO, CMP ####[facility] [address] [place], [place] [phone] magnesium on 2018-01-29 Magnesium mass conc 1.9 1.7-2.3 mg/dL Normal 01-29-2018 [facility] (93555) Comment: Performed By: #### CBCDIF, ALCO, CMP ####[facility] [address] [place], [place] [phone] ed note on 2018-01-29 ED NOTE HNO ID: [id number] Normal 01-29-2018 [facility] (76833) Author: Denise GarnerRn) Haley, RN Service: (none) Author Type: Registered Nurse Type: ED Notes Filed: 01/29/2018 8:37 PM Note Text: Clean catch urine specimen obtained and sent. ED NOTE HNO ID: [id number] Normal 01-29-2018 [facility] (39242) Author: Ana GarnerRn) Traci, RN Service: (none) Author Type: Registered Nurse Type: ED Notes Filed: 01/29/2018 8:29 PM Note Text: Patient presents to ED with abd pain hcg qual, urine on 2018-01-29 HCG.beta subunit Negative Negative Normal 01-29-2018 [facility] ( test) Ql (U) (79676) Comment: Result Comment: False positives and false negatives are rare but have been described. Clinical correlation of the findings is recommended. Performed By: #### UA, UHCG, UAMIC ####[facility] [address] [place] [address] urinalysis on 2018-01-29 Bilirubin, Urine Negative Negative Normal 01-29-2018 [facility] (61741) Comment: Performed By: #### UA, UHCG, UAMIC ####[facility] [address] [place] [address] Clarity Clear Clear Normal 01-29-2018 [facility] (75136) Comment: Performed By: #### UA, UHCG, UAMIC ####[facility] [address] [place] [address] Color Yellow Yellow Normal 01-29-2018 [facility] (52910) Comment: Performed By: #### UA, UHCG, UAMIC ####[facility] [address] [place] [address] Glucose Ql (U) Negative Negative Normal 01-29-2018 [facility] (69264) Comment: Performed By: #### UA, UHCG, UAMIC ####[facility] [address] [place] [address] Hemoglobin/Blood,Ur Negative Negative Normal 01-29-2018 [facility] (50264) Comment: Performed By: #### UA, UHCG, UAMIC ####[facility] [address] [place] [address] Ketones Ql (U) Negative Negative Normal 01-29-2018 [facility] (69124) Comment: Performed By: #### UA, UHCG, UAMIC ####[facility] [address] [place] [address] Leukest Trace Negative Critically abnormal 01-29-2018 [facility] (41154) Comment: Performed By: #### UA, UHCG, UAMIC ####[facility] Ye[address]ri3641 [place] [address] Nitrites Negative Negative Normal 01-29-2018 [facility] (53101) Comment: Performed By: #### UA, UHCG, UAMIC ####[facility] [address]dp8240 [place] [address] pH 6.5 5.0-8.0 Normal 01-29-2018 [facility] (55361) Comment: Performed By: #### UA, UHCG, UAMIC ####[facility] [address]uz[address]j6200 [place] [address] Protein, Urine Negative Negative Normal 01-29-2018 [facility] (40665) Comment: Performed By: #### UA, UHCG, UAMIC ####[facility] [address]lk9815 [place] [address] Specific [place], Ur <=1.005 1.001-1.029 Normal 01-29-2018 [facility] (75745) Comment: Performed By: #### UA, UHCG, UAMIC ####[facility] [address]gcna4048 [place] [address] Urobilinogen 0.2 0.2-1.0 Normal 01-29-2018 [facility] (17377) Comment: Performed By: #### UA, UHCG, UAMIC ####[facility] Catveofsvs8988 [place] [address] urine microscopic (for lab use only) on 2018-01-29 Bacteria Occasional 0 Critically abnormal 01-29-2018 [facility] (25645) Comment: Performed By: #### UA, UHCG, UAMIC ####[facility] Z[address]udi2232 [place] [address] Cast SEE COMMENT 0 Normal 01-29-2018 [facility] (40130) Comment: Result Comment: 0 Performed By: #### UA, UHCG, UAMIC ####[facility] [address]oyv6362 [place] [address] Epithelial Cells SEE COMMENT Normal 01-29-2018 [facility] (47666) Comment: Result Comment: 0-5Squamous Epithelial Cells Performed By: #### UA, UHCG, UAMIC ####[facility] [address]mbvt6579 [place] [address] INR Coag RelTime (Bld) 0-3 0-3 Normal 01-29-2018 [facility] (14806) Comment: Performed By: #### UA, UHCG, UAMIC ####[facility] Ub[address]ssj4907 [place] [address] WBC 0-5 0-5 Normal 01-29-2018 [facility] (22976) Comment: Performed By: #### UA, UHCG, UAMIC ####[facility] [address]qjtt6340 [place] [address] comp metabolic panel on 2018-01-29 Albumin mass conc 4.4 3.9-4.9 g/dL Normal 01-29-2018 [facility] (23115) Comment: Performed By: #### CBCDIF, ALCO, CMP ####[facility] V[address]olxwex0953 [place] [address] ALP enzyme act/vol 112 34-123 U/L Normal 01-29-2018 [facility] (16899) Comment: Performed By: #### CBCDIF, ALCO, CMP ####[facility] Svvpmfhobs6804 [place] [address] ALT enzyme act/vol 42 7-38 U/L High 01-29-2018 [facility] (07593) Comment: Performed By: #### CBCDIF, ALCO, CMP ####[facility] Jhnfkgmlxw0714 [place] [address] Anion gap 3 molar conc 13 9-18 mmol/L Normal 01-29-2018 [facility] (23611) Comment: Performed By: #### CBCDIF, ALCO, CMP ####[facility] Kfvcebtepb1285 [place] [address] AST enzyme act/vol 25 13-35 U/L Normal 01-29-2018 [facility] (87146) Comment: Performed By: #### CBCDIF, ALCO, CMP ####[facility] Conzsb[address]wwu0814 [place] [address] Bilirubin mass conc 0.3 0.2-1.3 mg/dL Normal 01-29-2018 [facility] (63352) Comment: Performed By: #### CBCDIF, ALCO, CMP ####[facility] Etfbnbuknl6067 [place] [address] Calcium mass conc 9.4 8.5-10.2 mg/dL Normal 01-29-2018 [facility] (62734) Comment: Performed By: #### CBCDIF, ALCO, CMP ####[facility] Dqdnlcklsp7611 [place] [address] Chloride molar conc 100 97-105 mmol/L Normal 01-29-2018 [facility] (18020) Comment: Performed By: #### CBCDIF, ALCO, CMP ####[facility] Gwnvmkxdih7022 [place] [address] CO2 molar conc 25 22-30 mmol/L Normal 01-29-2018 [facility] (74891) Comment: Performed By: #### CBCDIF, ALCO, CMP ####[facility] Lbulhhrjec2736 [place] [address] Creatinine mass conc 0.70 0.58-0.96 mg/dL Normal 01-29-2018 [facility] (38110) Comment: Performed By: #### CBCDIF, ALCO, CMP ####[facility] Kbqglelvte9191 [place] [address] eGFR- Amer. >60 Normal 01-29-2018 [facility] (75018) Comment: Performed By: #### CBCDIF, ALCO, CMP ####[facility] Fujrqalikx7996 [address]5[address] GFR/1.73 sq M predicted >60 mL/min/{1.73_m2} Normal 01-29-2018 [facility] among non-blacks MDRD (82621) vol rate/area (S/P/Bld) Comment: Result Comment: eGFR (Estimated GFR) Units of measure: mL/min/1.73 meters squaredeGFR is derived from the reexpressed MDRD Study equation using the following parameters: serum creatinine, age, gender and race. The creatinine assay has been calibrated to be traceable to IDMS.An eGFR <60 mL/min/1.73m2 for >3 months is consistent with chronic kidney disease. Refer to KDOQI guidelines for clinical interpretation.In patients with unstable renal function, e.g. those with acute kidney injury, the eGFR may not accurately reflect actual GFR. Performed By: #### JOS COPELAND CMP ####[facility] [address] [place] [phone] Glucose mass conc 105 74-99 mg/dL High 01-29-2018 [facility] ([id number]) Comment: Result Comment: The [place] Diabetes Association (ADA) provides guidance for cutoff values for fasting glucose and random glucose. The ADA defines fasting as no caloric intake for at least 8 hours. Fasting plasma glucose results between 100 to 125 mg/dL indicate increased risk for diabetes (prediabetes).Fasting plasma glucose results greater than or equal to 126 mg/dL meet the criteria for diagnosis of diabetes. In the absence of unequivocal hyperglycemia, results should be confirmed by repeat testing. In a patient with classic symptoms of hyperglycemia or hyperglycemic crisis, random plasma glucose results greater than or equal to 200 mg/dL meet the criteria for diagnosis of diabetes.Reference: Standards of Medical Care in Diabetes 2016, [place] Diabetes Association. Diabetes Care. 2016.39(Suppl 1). Performed By: #### JOS COPELAND CMP ####[facility] Mjvfnnoled1998 [phone] Potassium molar conc 3.8 3.7-5.1 mmol/L Normal 01-29-2018 [facility] ([id number]) Comment: Performed By: #### JOS COPELAND CMP ####[facility] Aphaohcwnz4028 [phone] Protein mass conc 7.1 6.3-8.0 g/dL Normal 01-29-2018 [facility] ([id number]) Comment: Performed By: #### JOS COPELAND CMP ####[facility] [address] [place] [phone] Sodium molar conc 138 136-144 mmol/L Normal 01-29-2018 [facility] ([id number]) Comment: Performed By: #### JOS COPELAND, CMP ####[facility] Xaqnlshmbn8037 [phone] Urea nitrogen mass conc 6 7-21 mg/dL Low 01-29-2018 [facility] (02453) Comment: Performed By: #### CBCDIF, ALCO, CMP ####[facility] Hvbafteejf4432 [phone] ed note on 2018-01-30 ED NOTE HNO ID: [id number]: Denise Normal 01-30-2018 [facility] ([id number]) (Rn) LLOYD De Leonervice: (none)Author Type: Registered NurseType: ED NotesFiled: 01/29/2018 10:20 PMNote Text: Discharge inst reviewed with pt, discussed new prescription and follow upwith pc, pt verbalized understanding via teach back method, pt stable upondeparture from ED ed prov note on 2018-01-30 Protein mass HNO ID: [id number]: Shemar Zaarte Normal 01-30-2018 [place] conc (Pa) CribbinsService: (none)Author Hospital Type: Physician AssistantType: ED ([id number]) Provider NotesFiled: 01/29/2018 10:49 PMNote Text:ED Provider NotePatient Name: Malena SanchesN: [id number] DATE: 01/29/18HistoryPatient presents with:Abdominal Rzll56-prtg-fay female presents to the emergency department With complaints ofleft pelvic pain. Patient states that she's had this in the past but thiswill worsen usual. Denies any vaginal bleeding or discharge. States thatshe is due to have her period in the next few days. States that there kaela possibility she is but is not sure. Denies any missed herirregular menstrual cycles. Denies any urinary symptoms or flank pain.Denies any nausea or vomiting.History provided by: Patient and significant otherLanguage wastewater superintendent used: NoPAST MEDICAL HISTORYDiagnosis Date- NEGATIVE MEDICAL HISTORY- Trauma 02/07/[address] walking dogPAST SURGICAL HISTORYProcedure Laterality Date- NONEFAMILY HISTORYProblem Relation Age of Onset- Hypertension Mother- Hypertension FatherSocial HistorySocial History Main Topics- Smoking status: Never Smoker- Smokeless tobacco: Never Used- Alcohol use No- Drug use: No- Sexual activity: Yes Partners: Male control/ protection: CondomALLERGIESAllergen Reactions- Ceftin [Cefuroxime * GI Upset, Other: See Comments dizziness- Omnicef [Cefdinir] GI UpsetReview of SystemsConstitutional: Negative. Negative for chills, fatigue and fever.HENT: Negative.Respiratory: Negative. Negative for cough, shortness of breath andwheezing.Cardiovascular: Negative.Gastrointestinal: Positive for abdominal pain. Negative for constipation,diarrhea, nausea and vomiting.Genitourinary: Positive for pelvic pain. Negative for dysuria, frequency,hematuria, menstrual problem, vaginal bleeding and vaginal discharge.Musculoskeletal: Negative.Skin: Negative. Negative for rash and wound.Neurological: Negative.Psychiatric/Behavioral: Negative.Physical ExamBP 143/85 Pulse 92 Temp (Src) 98.4 (Oral) Resp 14 Wt 160 lb(72.6kg) SpO2 98% LMP 01/08/2018Physical ExamConstitutional: She is oriented to person, place, and time. She appearswell-developed and well-nourished. No distress.HENT:Head: Normocephalic and atraumatic.Eyes: Pupils are equal, round, and reactive to light. EOM are normal.Neck: Normal range of motion.Cardiovascular: Normal rate, regular rhythm and normal heart sounds.Pulmonary/Chest: Effort normal and breath sounds normal. No respiratorydistress. She has no wheezes.Abdominal: Soft. Bowel sounds are normal. She exhibits no distension andno mass. There is tenderness in the left lower quadrant. There is norebound and no guarding.Nonsurgical abdomen on exam with tenderness to the left lower quadrant.No guarding or rigidity. No right-sided pain.Neurological: She is alert and oriented to person, place, and time. Nocranial nerve deficit. Coordination normal.Skin: Skin is warm. Capillary refill takes less than 2 seconds. No rashnoted. No erythema.Psychiatric: She has a normal mood and affect. Her behavior is normal.Judgment and thought content normal.Nursing note and vitals reviewed.Diagnostic TestingED Labs Ordered and ReviewedURINALYSIS - Abnormal; Notable for the following: Result Value Ref Range Leukest Trace (*) Negative All other components within normal limitsURINE MICROSCOPIC - Abnormal; Notable for the following: Bacteria Occasional (*) 0 /HPF All other components within normal limitsCBC + DIFF - Abnormal; Notable for the following: WBC 12.12 (*) 3.70 - 11.00 k/uL MPV 8.7 (*) 9.0 - 12.7 fL Abs Neut (ANC) 7.80 (*) 1.45 - 7.50 k/uL Abs [place] 1.08 (*) <0.87 k/uL All other components within normal limitsCOMP METABOLIC PANEL - Abnormal; Notable for the following: Glucose 105 (*) 74 - 99 mg/dL BUN 6 (*) 7 - 21 mg/dL ALT 42 (*) 7 - 38 U/L All other components within normal limitsHCG QUAL URLIPASE BLDMAGNESIUM BLDUS FEMALE PELVIS TRANSVAG Final Result IMPRESSION: 1. Vascular flow demonstrated in both ovaries. 2. Multiple subcentimeter follicles in both ovaries. The possibilityof polycystic ovarian syndrome is to be excluded clinically. 3. Retroverted uterus. Blower Installer: ANUPAMA Transcribe Date/Time: Jan 29 2018 9:43P Dictated by : AC MAYES MD This examination was interpreted and the report reviewed and electronically signed by: AC MAYES MD on Jan 29 2018 9:50PM ESTUS DOPPLER COMPLETE Final Result IMPRESSION: 1. Vascular flow demonstrated in both ovaries. 2. Multiple subcentimeter follicles in both ovaries. The possibilityof polycystic ovarian syndrome is to be excluded clinically. 3. Retroverted uterus. Blower Installer: ANUPAMA Transcribe Date/Time: Jan 29 2018 9:43P Dictated by : AC MAYES MD This examination was interpreted and the report reviewed and electronically signed by: AC MAYES MD on Jan 29 2018 9:50PM ESTProceduresED Course / Clinical ImpressionClinical Impressions as of Jan 29 2246Non-surgical abdominal painMDM / Disposition / PlanMDMClinically and hemodynamically stable at time of discharge. Patient feelscomfortable with discharge plan and understands the importance offollow-up with a primary care doctor. Advised to return here symptomschange or worsen. Nonsurgical abdomen at time of discharge.The patient was DISCHARGED: Counseled patient and significant otherregarding lab results AND radiology results AND suspected diagnosis AND needfor follow-up. Discharged home with verbal and written instructions. Theywere instructed to return as needed for persistent or worsening symptomsor any new concerns.Condition at time of disposition: stableSIGNATURE: DELANEY Suarez-Estefani Zarate (Tree Orellana01/29/18 2249 us doppler complete on 2018-01-29 US DOPPLER * * *Final Report* * *DATE OF Normal 01-29-2018 [facility] COMPLETE EXAM: Jan 29 2018 9:41PM RIP [id number] ([id number]) - US DOPPLER COMPLETE / REASON: Pain, pelvis * * * * Physician Interpretation * * * * EXAMINATION: TRANSVAGINAL PELVIC ULTRASOUNDCLINICAL HISTORY: Pelvic painTECHNIQUE: Sonography of the pelvis was performed by transvaginal techniques. Images were obtained and stored in a permanent archive.MQ: UFP_1COMPARISON: No prior pelvic ultrasound availableRESULT:Uterus size: 5.4 x 4.2 x 4.2 cm -Orientation: Retroverted -Myometrium: Normal sonographic appearance. -Endometrial echo complex: 0.8 cm, minimally heterogeneous -Cervix: Small nabothian cysts notedRight ovary: 4.3 x 2.1 x 1.9 cm A number of subcentimeter follicles are present; many are located in the peripheral region. Arterial and venous vascular flow is detected in the right ovary.Left ovary: 2.6 x 2.5 x 2.1 cm Subcentimeter follicles are present. Arterial and venous vascular flow is also detected in the left ovary.Pelvis free fluid: Miniscule amount in the fyt-tu-pzmMDDWFDXZZE:1. Vascular flow demonstrated in both ovaries.2. Multiple subcentimeter follicles in both ovaries. The possibility of polycystic ovarian syndrome is to be excluded clinically.3. Retroverted uterus.Blower Installer: ANUPAMA Transcribe Date/Time: Jan 29 2018 9:43PDictated by : AC MAYES MDThis examination was interpreted and the report reviewed and electronically signed by: AC MAYES MD on Jan 29 2018 9:50PM [id number] us female pelvis transvag on 2018-01-29 US FEMALE PELVIS * * *Final Report* * *DATE OF Normal 01-29-2018 [facility] TRANSVAG EXAM: Jan 29 2018 9:41PM RIP [id number] ([id number]) - US FEMALE PELVIS TRANSVAG / REASON: Pain, pelvis * * * * Physician Interpretation * * * * EXAMINATION: TRANSVAGINAL PELVIC ULTRASOUNDCLINICAL HISTORY: Pelvic painTECHNIQUE: Sonography of the pelvis was performed by transvaginal techniques. Images were obtained and stored in a permanent archive.MQ: UFP_1COMPARISON: No prior pelvic ultrasound availableRESULT:Uterus size: 5.4 x 4.2 x 4.2 cm -Orientation: Retroverted -Myometrium: Normal sonographic appearance. -Endometrial echo complex: 0.8 cm, minimally heterogeneous -Cervix: Small nabothian cysts notedRight ovary: 4.3 x 2.1 x 1.9 cm A number of subcentimeter follicles are present; many are located in the peripheral region. Arterial and venous vascular flow is detected in the right ovary.Left ovary: 2.6 x 2.5 x 2.1 cm Subcentimeter follicles are present. Arterial and venous vascular flow is also detected in the left ovary.Pelvis free fluid: Miniscule amount in the zag-hp-edfDAAXLPPIOS:1. Vascular flow demonstrated in both ovaries.2. Multiple subcentimeter follicles in both ovaries. The possibility of polycystic ovarian syndrome is to be excluded clinically.3. Retroverted uterus.Blower Installer: ANUPAMA Transcribe Date/Time: Jan 29 2018 9:43PDictated by : AC MAYES MDThiangela examination was interpreted and the report reviewed and electronically signed by: AC MAYES MD on Jan 29 2018 9:50PM [id number] progress on 2017-06-17 PROGRESS HNO ID: [id number]: Teresa Bonner [facility] PorterciunService: PsychiatryAuthor Type: Hospital PhysicianType: Progress NotesFiled: ([id number]) 06/17/2017 4:26 PMNote Text:PROGRESS NOTE BEHAVIORAL HEALTHSERVICE DATE: 06/17/2017SERVICE TIME: 10:29 AMSubjective I di d not want to hurt myself ObjectiveSeen patient .She is calm cooperative and states she had an argument with boyfriendand boyfriend has a gun .Denies any suicidal intent and states it was a misunderstandingPHYSICAL EXAM: BP 124/80 Pulse 102 Temp 36.8 ?C (98.2 ?F) (Oral) Resp 18 Ht 162.6 cm (5' 4) Wt 78.5 kg (173 lb) LMP 05/20/2017(Within Days) SpO2 100% BMI 29.7 kg/g0ZOKHTS STATUS EXAMINATION:Appearance: Casually dressedBehavior: AppropriateOrientation: Person, Place, Time and SituationSpeech/Language: The patient demonstrates appropriate tone, prosody,rosales, phonetics, and syntaxMood/Affect: EuthymicThought Form: LogicalThought Content: LogicalSuicidal Ideations: No suicidal ideation, intent or plan.Homicidal Ideations: No homicidal ideation, intent or plan.Insight: AppropriateJudgment: AppropriateMemory/Cognition: IntactPsychomotor: Psychomotor activity was normalNEW PROBLEMS ON UNIT SINCE LAST ENCOUNTER: NoneCurrent hospital medications:nicotine polacrilex 2 mg gum (NICORETTE) 2 mg ORAL q 2 H PRNLORazepam 2 mg (ATIVAN) 2 mg ORAL q 4 H PRNLORazepam 2 mg injection (ATIVAN) 2 mg INTRAMUSCULAR q 4 H PRNhaloperidol 5 mg tab(s) (HALDOL) 5 mg ORAL q 4 H PRNhaloperidol lactate 5 mg injection (HALDOL) 5 mg INTRAMUSCULAR q 4 H PRNtraZODone 50 mg tab(s) (DESYREL) 50 mg ORAL HS PRNacetaminophen 650 mg tab(s) (TYLENOL) 650 mg ORAL q 6 H PRNaluminum-magnesium hydroxide-simethicone 200-200-20 mg/5 mL 30 mL(MAALOX,MYLANTA,MAG-AL PLUS) 30 mL ORAL q 4 H PRNmagnesium hydroxide 400 mg/5 mL 30 mL (MOM) 30 mL ORAL DAILY PRNDATA:Diagnostic tests reviewed for today's visit:No new labsAssessment/PlanDIAGNOSIS:1. PRIMARY: Mood Disorder Major Depressive Disorder, Single Episode,ModerateGAF: 30 -30-21 Behavior is considerably influenced by delusions orhallucination or serious impairment in communication or judgmentRISK ASSESSMENT:Suicide: lowHomicide: lowDeliberate Self-Harm: lowAggression: lowImminent Physical Self Impairment: lowINFORMED CONSENT: Yes, completed with the Patient. Discussed the risks,benefits and alternatives to the medication(s) recommended. Consent wasgiven.INTERVENTION:Biological: on PRN onlyPsychological: milieu therapySocial: see notesDISCHARGE PLANNING: when stableSIGNATURE: Teresa Tyler MD PATIENT NAME: Malena BarakatATE: June 17, 2017 : 10:29 AM PAGER/CONTACT#: [id number] urine microscopic (for lab use only) on 2018-01-13 Bacteria Occasional 0 Critically abnormal 01-13-2018 [facility] ([id number]) Comment: Performed By: #### UA, UAMIC, UHCG ####[facility] [address] [place] [address] Cast SEE COMMENT 0 Normal 01-13-2018 [facility] ([id number]) Comment: Result Comment: 0 Performed By: #### UA, UAMIC, UHCG ####[facility] [address] [place] [address] Epithelial Cells SEE COMMENT Normal 01-13-2018 [facility] ([id number]) Comment: Result Comment: 0-5Squamous Epithelial Cells Performed By: #### UA, UAMIC, UHCG ####[facility] [address] [place] [address] INR Coag RelTime (Bld) 0-3 0-3 Normal 01-13-2018 [facility] ([id number]) Comment: Performed By: #### UA, UAMIC, UHCG ####[facility] [address] [place] [address] WBC 0-5 0-5 Normal 01-13-2018 [facility] ([id number]) Comment: Performed By: #### UA, UAMIC, UHCG ####[facility] [address] [place] [address] hemoglobin a1c on 2017-06-17 Glucose mass conc 103 mg/dL Normal 06-17-2017 [facility] (32371) Comment: Result Comment: eAG: (Estimated average glucose) is a calculated value from HgbA1c and is customer service representative teacher of the average blood glucose level in the last 2-3 month period. Performed By: #### LIPB, HBA1C ####[facility] [place], [place] [phone] Hemoglobin A1c/Hemoglobin.total 5.2 4.3-5.6 % Normal 06-17-2017 [facility] mass fraction (Bld) (16150) Comment: Performed By: #### LIPB, HBA1C ####[facility] [place], [place] [phone] urinalysis on 2018-01-13 Bilirubin, Urine Negative Negative Normal 01-13-2018 [facility] ([id number]) Comment: Performed By: #### UA, UAMIC, UHCG ####[facility] [address] [place], [place] [phone] Clarity Clear Clear Normal 01-13-2018 [facility] (39118) Comment: Performed By: #### UA, UAMIC, UHCG ####[facility] [address] [place] [address] Color Yellow Yellow Normal 01-13-2018 [facility] (71148) Comment: Performed By: #### UA, UAMIC, UHCG ####[facility] [address] [place], [place] [phone] Glucose Ql (U) Negative Negative Normal 01-13-2018 [facility] ([id number]) Comment: Performed By: #### UA, UAMIC, UHCG ####[facility] [address] [place] [phone] Hemoglobin/Blood,Ur Trace Negative Critically abnormal 01-13-2018 [facility] ([id number]) Comment: Performed By: #### UA, UAMIC, UHCG ####[facility] Bqzjfepkjt6692 [address] Ketones Ql (U) Negative Negative Normal 01-13-2018 [facility] (39485) Comment: Performed By: #### UA, UAMIC, UHCG ####[facility] [address] [place] [address] Leukest Negative Negative Normal 01-13-2018 [facility] (81007) Comment: Performed By: #### UA, UAMIC, UHCG ####[facility] [address] [place] [phone] Nitrites Negative Negative Normal 01-13-2018 [facility] (51636) Comment: Performed By: #### UA, UAMIC, UHCG ####[facility] [address] [place] [address] pH 6.5 5.0-8.0 Normal 01-13-2018 [facility] (18533) Comment: Performed By: #### UA, UAMIC, UHCG ####[facility] [address] [place] [address] Protein, Urine Negative Negative Normal 01-13-2018 [facility] (03400) Comment: Performed By: #### UA, UAMIC, UHCG ####[facility] [address] [place] [address] Specific [place], Ur 1.020 1.001-1.029 Normal 01-13-2018 [facility] (62685) Comment: Performed By: #### UA, UAMIC, UHCG ####[facility] [address] [place] [address] Urobilinogen 0.2 0.2-1.0 Normal 01-13-2018 [facility] ([id number]) Comment: Performed By: #### UA, UAMIC, UHCG ####[facility] [address] [place] [address] urine culture on 2018-01-13 Bacteria Sp. Request/Comment: - Critically 01-13-2018 [place] identified Cx Specimen received in [facility] Nom (U) preservativeCulture ([id number]) Result - 10,000 - <50,000 CFU/ml Lactose positive gram negative bacilli --> ABNORMAL ALERT Insignificant colony count. No further workup. --> ABNORMAL ALERT >=100,000 CFU/ml Normal urogenital paula Comment: Performed By: #### URCUL ####[facility] Qlezawjltw3544 [address]5160[facility] [place], [place] [phone] lipid panel, basic on 2017-06-17 Cholesterol 131 <200 mg/dL Normal 06-17-2017 [facility] (60506) Comment: Result Comment: <200 mg/dL, Desirable 200-239 mg/dL, Borderline high>239 mg/dL, High Performed By: #### LIPB, HBA1C ####[facility] [place], [place] [phone] Fasting Time Unknown Normal 06-17-2017 [facility] (01692) Comment: Performed By: #### LIPB, HBA1C ####[facility] [phone] HDL Cholesterol 44 >39 mg/dL Normal 06-17-2017 [facility] (28400) Comment: Result Comment: 40-59 mg/dL, Acceptable>59 mg/dL, High: Negative risk factor for coronary heart disease<40 mg/dL, Low: Positive risk factor for coronary heart disease Performed By: #### LIPB, HBA1C ####[place] [phone] LDL Cholesterol 69 <100 mg/dL Normal 06-17-2017 [facility] (94706) Comment: Result Comment: <100 mg/dL, Optimal 100-129 mg/dL, Near optimal/above optimal 130-159 mg/dL, Borderline high 160-189 mg/dL, High>189 mg/dL, Very highSecondary prevention optimal LDL Cholesterol levels are recommended to be < 70 mg/dL Performed By: #### LIPB, HBA1C ####[place] [phone] LDL:HDL Ratio 1.57 <2.54 Normal 06-17-2017 [facility] (09178) Comment: Result Comment: Reference:1. National Cholesterol Education Program ATP III Guideline At-A-Glance Quick Desk Reference: National Heart, Lung, and Blood Macy. National Institutes of Health. 2001: NIH Publication No. 01-3305.2. An International Atherosclerosis Society position paper: global recommendations for the management of dyslipidemia: executive summary, Atherosclerosis. 2014: 232(2):410-413.Cut Points from the Lipid Research Clinic's Prevalence Study for ages 20 to 24 years can be located in the following reference: Expert Panel on Integrated Guidelines for Cardiovascular Health and Risk Reduction in Children and Adolescents: National Heart, Lung and Blood Macy. Pediatrics. 2011:128(Suppl 5):Y946-462. Performed By: #### LIPB, HBA1C ####[place] [phone] Non HDL Cholesterol 87 <130 mg/dL Normal 06-17-2017 [facility] (73809) Comment: Result Comment: <130 mg/dL, Optimal 130-159 mg/dL, Near optimal/above optimal 160-189 mg/dL, Borderline high 190-219 mg/dL, High>219 mg/dL, Very highSecondary prevention optimal non HDL Cholesterol levels are recommended to be < 100 mg/dL Performed By: #### LIPB, HBA1C ####[place] [phone] TC:HDL Ratio 2.98 <5.10 Normal 06-17-2017 [facility] (13699) Comment: Performed By: #### LIPB, HBA1C ####[place] [phone] Triglyceride 89 <150 mg/dL Normal 06-17-2017 [facility] (11497) Comment: Result Comment: <150 mg/dL, Normal 150-199 mg/dL, Borderline high 200-499 mg/dL, High>499 mg/dL, Very high Performed By: #### LIPB, HBA1C ####[place] [phone] VLDL Cholesterol 18 <30 mg/dL Normal 06-17-2017 [facility] (59558) Comment: Performed By: #### LIPB, HBA1C ####[place] [phone] nursing prog on 2017-06-19 NURSING HNO ID: [id number]: Jacob (Rn) LLOYD Fonsecaervice: (none)Author Type: Registered NurseType: Normal 06-19-2017 [facility] PROG Nursing Progress NoteFiled: 06/19/2017 2:23 PMNote Text: Nursing Progress NotePatient Name: [facility]RN: [id number] Location: ([address]) [id number]/-[facility] Transfer Note:Patient transferred out to room/unit 142-1 at 1421 in stable condition.Actions taken: personal and valuable belongings returned to patient;discharge plan reviewed with patient including f/u appts and medicatons.Personal, valuable,discharge items reviewed by 2 staff nurses prior todischarge.This note was completed by: Jacob Hennessy RN NURSING HNO ID: [id number]: Isamar GarnerRn) Sd, RNService: NursingAuthor Type: Registered NurseType: [place] 06-19-2017 [facility] SIZESEEKER Nursing Progress NoteFiled: 06/19/2017 6:03 AMNote Text: Nursing Progress NotePatient Name: [facility]: [id number] Location: (42247) [id number]/[facility] [place]-015* Daily Note:2330 Received report and assumed care of patient. Patient resting quietlyin bed, eyes closed. Will continue to monitor.0559 Patient continues to sleep, 6.5 hours.Arm band intact, Q 15 minute safety checks maintained. Will continue tomonitor.This note was completed by: Isamar Beaver RN NURSING HNO ID: [id number]: WES Freeman Lpnervice: (none)Author Type: LICENSED NURSEType: [place] 06-19-2017 [facility] PROG Nursing Progress NoteFiled: 06/18/2017 10:01 PMNote Text: Nursing Progress NotePatient Name: [facility]: [id number] Location: (82666) [id number]/[place]-[facility]-015* Daily Note:2145- Patient has been up and visible in the day area. She issocial with peers. Patient pleasant upon approach. She is coam andcooperative. Her only complaint is headache and this hand sign writer bxypazdjqvve900 mg PO Tylenol. Also administered Trazodone 50 mg PO for insomnia. Nobehavior issues at all. Denies any SI/HI, AVH. 15 minute safety checksmaintained.This note was completed by: Ac Nix LPN ed prov note on 2018-01-13 Protein mass HNO ID: [id number]: Dolly Coffman 01-13-2018 Nyla ferguson ([place]) KordubaService: (none)Author Hospital Type: Physician AssistantType: ED ([id number]) Provider NotesFiled: 01/15/2018 3:03 PMNote Text:ED Provider NotePatient Name: Malena SanchesN: [id number] DATE: 01/13/18HistoryPatient presents with:AqiiooNtyhhzvrs43 year old female presents to the emergency department with nausea andmood swings and feels that she might be . She states that she hasbeen attempting get and her last menstrual period is 2 weekslate. She states she took home test and had invalid results.She denies abdominal pain or discomfort. She denies pelvic pain orvaginal discharge. She denies urinary symptoms. There's been novomiting. She is [id number] MEDICAL HISTORYDiagnosis Date- NEGATIVE MEDICAL HISTORY- Trauma 02/07/[address] walking dogPAST SURGICAL HISTORYProcedure Laterality Date- NONEFAMILY HISTORYProblem Relation Age of Onset- Hypertension Mother- Hypertension FatherSocial HistorySocial History Main Topics- Smoking status: Never Smoker- Smokeless tobacco: Never Used- Alcohol use No- Drug use: No- Sexual activity: Yes Partners: Male control/ protection: CondomALLERGIESAllergen Reactions- Ceftin [Cefuroxime * GI Upset, Other: See Comments dizziness- Omnicef [Cefdinir] GI UpsetReview of SystemsConstitutional: Negative. Negative for activity change, appetite change,chills, fatigue, fever and unexpected weight change.HENT: Negative.Eyes: Negative.Respiratory: Negative. Negative for cough, chest tightness, shortness ofbreath, wheezing and stridor.Cardiovascular: Negative. Negative for chest pain, palpitations and legswelling.Gastrointestinal: Positive for nausea. Negative for abdominal pain,diarrhea and vomiting.Endocrine: Negative.Genitourinary: Negative.Musculoskeletal: Negative.Skin: Negative.Allergic/Immunologic: Negative. Negative for immunocompromised state.Neurological: Negative.Hematological: Negative. Does not bruise/bleed easily.Psychiatric/Behavioral: Negative.All other systems reviewed and are negative.Physical ExamBP 144/83 Pulse 86 Temp (Src) 97.8 (Oral) Resp 16 Wt 145 lb(65.8kg) SpO2 98% LMP 12/15/2017Physical ExamConstitutional: Vital signs are normal. She appears well-developed andwell-nourished. She is cooperative. Non-toxic appearance. She does nothave a sickly appearance. She does not appear ill. No distress.Cardiovascular: Normal rate, regular rhythm and normal heart sounds. Examreveals no gallop and no friction rub.No murmur heard.Pulmonary/Chest: Effort normal and breath sounds normal. No respiratorydistress. She has no decreased breath sounds. She has no wheezes. She hasno rhonchi. She has no rales. She exhibits no tenderness.Abdominal: Soft. Normal appearance and bowel sounds are normal. There isno hepatosplenomegaly, splenomegaly or hepatomegaly. There is notenderness. There is no rigidity, no rebound, no guarding, no CVAtenderness, no tenderness at McBurney's point and negative Montana's sign.No hernia.Neurological: She is alert.Skin: Skin is warm and dry. Capillary refill takes less than 2 seconds. Norash noted. She is not diaphoretic. No erythema. No pallor.Psychiatric: She has a normal mood and affect.Nursing note and vitals reviewed.Diagnostic TestingResults for orders placed or performed during the hospital encounter of01/13/18URINALYSISResult Value Ref Range Color Yellow Yellow Appearance (U) Clear Clear Glucose, Urine Negative Negative mg/dL Bilirubin, Urine Negative Negative Ketones, Urine Negative Negative Specific [place], Ur 1.020 1.001 - 1.029 Hemoglobin/Blood,Ur Trace (A) Negative pH, Urine 6.5 5.0 - 8.0 Protein, Urine Negative Negative mg/dL Urobilinogen 0.2 0.2 - 1.0 Nitrites Negative Negative Leukest Negative NegativeHCG QUAL URResult Value Ref Range HCG Qualitative, Urine Negative NegativeURINE MICROSCOPICResult Value Ref Range WBC, Urine 0-5 0 - 5 /HPF RBC, Urine 0-3 0 - 3 /HPF Cast SEE COMMENT 0 /LPF Bacteria Occasional (A) 0 /HPF Epithelial Cells SEE COMMENT /HPFURINE CULTUREResult Value Ref Range Specimen Request Specimen received in preservative Culture (A) 10,000 - <50,000 CFU/mlLactose positive gram negative bacilliInsignificant colony count. No further workup. Culture >=100,000 CFU/mlNormal urogenital floraProceduresED Course / Clinical ImpressionClinical Impressions as of Jan 15 1438NauseaMDM / Disposition / PlanMedications - No data to displayPatient has normal vital signs and is in no acute distress. Urinepregnancy test is negative. Urinalysis shows occasional bacteria with 0-5white blood cells red blood cells normal 0-3. Urine culture pending. Idiscussed these results with the patient. The bacteria on the UA likelysecondary to skin contamination we'll await urine culture results.Patient denies need for anything for nausea at this point. She didrequest a prescription for home. She was given a prescription for Zofran4 mg 1 by mouth every 8 hours when necessary for nausea. She was advisedto follow-up with her PCP for reevaluation and return anytime if conditionworsens in anyway or new symptoms develop.DispositionThe patient was discharged and given RX.Counseled patient regarding lab results and suspected diagnosis. As wellas the need for follow-up. Discharged home with verbal and writteninstructions. They were instructed to return as needed for persistent orworsening symptoms or any new concerns.Medication(s) prescribed include zofran.Condition at disposition is stable.SIGNATURE: Jimmie Dye (Delaney) Boezvss70/23/18 1503 hcg qual, urine on 2018-01-13 HCG.beta subunit Negative Negative Normal 01-13-2018 [facility] ( test) Ql (U) ([id number]) Comment: Result Comment: False positives and false negatives are rare but have been described. Clinical correlation of the findings is recommended. Performed By: #### [facility], [facility], [facility] ####[facility] [address] [place], [place] [phone] ed note on 2018-01-13 ED NOTE HNO ID: [id number]: Normal 01-13-2018 [facility] Cyndie Cadena) Monalisa, ([id number]) RNService: (none)Author Type: Registered NurseType: ED NotesFiled: 01/16/2018 10:11 AMNote Text:Emergency Services: ED Call Back QuestionnaireSERVICE DATE: 01/13/2018Are you feeling better? YesAny questions about discharge instructions and follow-up care? NoWere you able to make a follow up appointment? Has not made a follow upyet since she feels betterDo you have any further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 rowPulse (Heart Rate) [facility] ([id number]) NEGATED: Highlighted 78.93 kg 11-16-2017 - 11-16-2017 [facility] rowWeight [facility] ([id number]) NEGATED: Highlighted 79 kg 11-16-2017 - 11-16-2017 [facility] rowWeight [facility] ([id number]) NEGATED: Highlighted 78.47 kg 11-15-2017 - 11-15-2017 [facility] ([id number]) NEGATED: Highlighted 79 kg 11-15-2017 - 11-15-2017 [facility] ([id number]) Encounters Date Type Reason Provider Location 03-29-2018 - Emergency [facility] 03-29-2018 department patient CLARISSE ([id number]) visit 03-25-2018 Emergency [facility] patient related UNKNOWN PROVIDER System ([id number]) visit conditions, first MOUNA KRISTINA trimester 02-03-2018 Emergency Lower abdominal UNKNOWN PROVIDER [facility] patient pain, unspecified UNKNOWN PROVIDER System ([id number]) visit Beau Robertsburn 01-29-2018 - Emergency [facility] 01-30-2018 department patient ([id number]) visit 01-13-2018 - Emergency [facility] 01-13-2018 department patient ([id number]) visit 11-13-2017 Emergency Prepatellar [facility] patient bursitis, right UNKNOWN PROVIDER System ([id number]) visit knee MOUNA KRISTINA 06-16-2017 - Emergency UNKNOWN PROVIDER [facility] 06-16-2017 department patient ([id number]) visit 06-16-2017 - Evaluation and TERESA Bonner [facility] 06-19-2017 management of [facility]SIE [facility] ([id number]) inpatient DEWAYNE MARIANO 11-16-2017 - Patient encounter Williams Smith [facility] 11-16-2017 procedure [facility] ([id number]) 11-15-2017 - Patient encounter Mera José [facility] 11-15-2017 procedure PA-C [facility] ([id number]) Procedures Procedure Name Date Provider Location Antibody screen 03-29-2018 [facility] ([id number]) Comment: Performed By: #### CBCDIF, ALCO, CMP ####[facility] [address] [place] [phone] Blood pressure within 11-16-2017 - Williams Smith [facility] normal parameters - no 11-16-2017 [facility] [place] - follow-up required [facility] ([id number]) BMI outside of normal 11-16-2017 - Williams Smith [facility] parameters - no 11-16-2017 [facility] - follow-up plan/reason [facility] not given Clinic ([id number]) Current medications 11-16-2017 - Williams Sarah [facility] documented 11-16-2017 [facility] ([id number]) Pain assessment 11-16-2017 - Williams A [facility] documented as positive 11-16-2017 [facility] - - follow-up documented [facility] ([id number]) Tobacco non-user 11-16-2017 - Williams A [facility] 11-16-2017 [facility] ([id number]) Blood pressure outside 11-15-2017 - Mera [facility] normal parameters - 11-15-2017 [facility] [place] - follow-up not [facility] documented ([id number]) BMI outside of normal 11-15-2017 - Mera José [facility] parameters - no 11-15-2017 [facility] [place] - follow-up plan/reason [facility] not given (46011) Current medications 11-15-2017 - Mera José [facility] documented 11-15-[address] [facility] (15514) Pain assessment 11-15-2017 - Mera [facility] documented as positive 11-15-2017 [facility] [place] - - follow-up documented [facility] ([id number]) Radiologic examination 11-15-2017 - Mera José [facility] knee 3 views 11-15-[address] [facility] (10261) Tobacco non-user 11-15-2017 - Mera José [facility] 11-15-[address] [facility] (17126) Plan of Treatment Plan Description Date Location Appointment Appointment 11-16-2017 - [facility] 11-16-2017 [facility] [place] [facility] ([id number]) Appointment Appointment 11-15-2017 - [facility] 11-15-2017 [facility] [place] [facility] ([id number]) Patient education \cps-sql1\CPS_PtEducation [facility] \htn.pdf [facility] [place] [facility] (73102) The following information is from the original human readable content Type Date Detail Appointment 02:00 PM Mera José PA-C, [address], [address], [place], [address], Appointment 01:40 PM [facility] [address], [place], [address], Patient education \cps-sql1\CPS_PtEducation\htn.pdf Type Date Detail Appointment 01:40 PM Williams Iraheta [facility], [address], [place], [address], Immunizations Vaccine Notes Status Date Location No information No information (completed) [facility] available. available. [facility] ([id number]) Payers Payer Name Policy Number Location [facility] ([id number]) [id number] [facility] (96164) [id number] [facility] (60989) [id number] [facility] ([id number]) The following information is from the original human readable content ENCOUNTER GUARANTOR PAYER SUBSCRIBER SOURCE 2018 [facility] FlipKeygDOB: Insurance:[employer]: System Repository [facility] Corporation[facility] [id number] [facility], Number: Effective Date: [place] [address]Zwu: (HP) 2018 [facility] InofilegDOB: Insurance:iTOK: System Repository [facility] [id number] [facility] [employer], Number: Effective Date: [place] [address]Yvy: (HP) 2017 Malena Jacob [facility] FlipKeygDOB: Insurance:iTOK: System Repository [facility] [id number] [facility] [employer], Number: Effective Date: [place] [address]Llj: (HP) Social History Type Social History Date Location Description NEGATED: Highlighted 11-15-2017 - [facility]Al[facility]-2017 [facility][id number][facility] NEGATED: Highlighted 11-15-2017 - [facility] rowDetails of drug 11-15-2017 [facility] - misuse behavior [facility] ([id number]) NEGATED: Highlighted Never smoker 11-15-2017 - [facility] rowAssertion 11-15-2017 [facility] [place] [facility] (82573) Assertion Unknown if ever smoked 11-16-2017 - [facility] 11-16-2017 [facility] (55358) The following information is from the original human readable content Concept Description Observation Name Observation Value Units Start Date Alcohol use ETOH USE No Preliminary social history data, not yet signed by the author as of Details of drug misuse behavior DRUG USE No Never smoker SMOK STATUS never smoker No Social History Records Found Summary Purpose DATE CREATED AUTHOR AUTHOR'S ORGANIZATION 09/27/2017 [facility] DATE CREATED AUTHOR AUTHOR'S ORGANIZATION 03/29/2018 [facility] DATE CREATED AUTHOR AUTHOR'S ORGANIZATION 04/08/2018 [facility] Family History There may be information available, but it has not been provided by the sender.No Family History Records Found Advance Directives There may be information available, but it has not been provided by the sender. No Advanced Directives Records Found Instructions No information available.There may be information available, but it has not been provided by the sender. There may be information available, but it has not been provided by the sender.There may be information available, but it has not been provided by the sender.There may be information available, but ithas not been provided by the sender. Assessments There may be information available, but it has not been provided by the sender. Review of System There may be information available, but it has not been provided by the sender. Additional Source Comments FOR RECORDS PERTAINING TO PATIENTS WHO ARE OR HAVE BEEN ENROLLED IN A CHEMICAL DEPENDENCY/SUBSTANCE ABUSE PROGRAM, SOME INFORMATION MAY BE OMITTED. This clinical summary was aggregated from multiple sources. Caution should be exercised in using it in the provision of clinical care. This summary normalizes information from multiple sources, and as a consequence, information in this document may materially changethe coding, format and clinical context of patient data. In addition, data may be omittedin some cases. CLINICAL DECISIONS SHOULD BE BASED ON THE PRIMARY CLINICAL RECORDS. [employer] provides no warranty or guarantee of the accuracy or completeness of information in this document. UNRECOGNIZED CONTENT PROVIDED BELOW FOR UNRECOGNIZED SECTION INFORMATION SOURCE DATE CREATED AUTHOR AUTHOR'S ORGANIZATION 04/08/2018 [facility] DATE CREATED AUTHOR AUTHOR'S ORGANIZATION 03/29/2018 [facility] DATE CREATED AUTHOR AUTHOR'S ORGANIZATION 09/27/2017 [facility]
[2018-07-13 17:53] LABS: Color, Urine Yellow (Yellow); Glucose, Dipstick Normal (Normal); Ketone-Dipstick Negative (Negative); Leukocyte Esterase-Dipstick Negative /ul (Negative); Nitrite-Dipstick Negative (Negative); Occult Blood-Urine Negative /ul (Negative); Protein-Dipstick Negative (Negative); Urine Bilirubin Dipstick Negative (Negative); Urine Clarity Sl. Cloudy (Clear); Urine Urobilinogen Normal (Normal)
--- NOTE | 2018-07-17 03:56 | OB.TRI.PN_ITS ---
Progress Notes Date of Service: 07/13/18 Progress Note: Patient is a 22-year-old at 22 weeks presented with an episode of brown to pink vaginal spotting tonight denies any contractions. She has had an uncomplicated so far she has had some intermittent blurry vision for the last couple of weeks but denies any headache currently and blood pressure is within normal limits and other vital signs are stable Past medical history negative Surgical history: Negative Social history: Denies any drug alcohol or tobacco use Physical exam: Vital signs stable afebrile General: Alert oriented comfortable Abdomen: Soft nontender to palpation gravid appropriate for gestational age Extremities: Negative clonus no significant edema heart tones 140s [place]: No regular contractions Urinalysis within normal limits Cervix no dilation thick and high Assessment and plan 22-year-old with vaginal spotting Reassuring status and no labor, reviewed bleeding precautions and labor precautions follow-up in office as an outpatient Laboratory Studies: Laboratory Tests 07/13/18 Range/Units 17:30 Urine Color Yellow (Yellow) Urine Clarity Sl. Cloudy (Clear) Urine pH 7.0 (5.0 - 8.0) Ur Specific [place] 1.010 (1.002-1.030) Urine Protein Negative (Negative) mg/dl Urine Glucose (UA) Normal (Normal) mg/dl Urine Ketones Negative (Negative) mg/dl Urine Occult Blood Negative (Negative) /ul Urine Nitrite Negative (Negative) Urine Bilirubin Negative (Negative) mg/dL Urine Urobilinogen Normal (Normal) mg/dl Ur Leukocyte Esterase Negative (Negative) /ul
== END 2018-07-13 19:50 | disposition home or self-care (01) ==
LOC: WPOUT 17:14 → WP 17:15
PROVIDERS: Visit Provider Obstetrics & Gynecology
DX: O26.852 Spotting complicating pregnancy, second trimester (principal); Z3A.22 22 weeks gestation of pregnancy
CPT/HCPCS: 59025; 59050; 81002; 99218; G0378

== ENCOUNTER 2018-08-12 17:10 | Outpatient (CLI) | payer MEDICAID, SELFPAY ==
[2018-08-12 17:27] VITALS: BMI 30.7
[2018-08-12 18:23] LABS: ROM Internal Control Test YES-OK TO RESULT pt. (Internal QC); ROM Patient Test Negative (Negative)
--- NOTE | 2018-08-13 08:09 | OB.TRI.NOTE ---
History of Present Illness Date of Service: 08/12/18 Was patient seen by the physician?: No Reason For Visit: DEN Date of Service: 08/12/18 Final MARITZA: 11/20/18 Final MARITZA Source: US <20 weeks Gestational age: 25 Weeks and 5 Days History of Present Illness: 23 yo presents at 25 + wks EGA... with CC of vaginal dischg, ? [facility] [place] night prior to this. ROM test neg Allergies cefdinir [From Omnicef] Adverse Reaction (Mild, Verified 08/12/18 18:03) Nausea Laboratory Studies: Laboratory Tests 08/12/18 Range/Units 17:35 Vag Amniotic Fld Detect Negative (Negative) NST - FHR Rate Baby A Baseline: 130-140s accels to 150s Variability:: Moderate Accelerations:: 10 x 10 Decelerations:: None NST Reactive:: Yes, Appropriate for gestational age FHR Category:: Category I Uterine Activity:: No UCs Impression/Plan 25 5/7 wk FALSE LABOR ROM neg. Inc vag dischg 2/2 recent intercourse
--- NOTE | 2018-08-13 08:12 | OB.TRI.HP_ITS ---
History of Present Illness Date of Service: 08/12/18 Was patient seen by the physician?: No Reason For Visit: DEN Date of Service: 08/12/18 Final MARITZA: 11/20/18 Final MARITZA Source: US <20 weeks Gestational age: 25 Weeks and 5 Days History of Present Illness: 23 yo presents at 25 + wks EGA... with CC of vaginal dischg, ? SROM [place] night prior to this. ROM test neg Allergies cefdinir [From Omnicef] Adverse Reaction (Mild, Verified 08/12/18 18:03) Nausea Laboratory Studies: Laboratory Tests 08/12/18 Range/Units 17:35 Vag Amniotic Fld Detect Negative (Negative) NST - FHR Rate Baby A Baseline: 130-140s accels to 150s Variability:: Moderate Accelerations:: 10 x 10 Decelerations:: None NST Reactive:: Yes, Appropriate for gestational age FHR Category:: Category I Uterine Activity:: No UCs Impression/Plan 25 5/7 wk FALSE LABOR ROM neg. Inc vag dischg 2/2 recent intercourse
== END 2018-08-12 18:45 | disposition home or self-care (01) ==
LOC: WPOUT 17:17 → WP 17:18
PROVIDERS: Family Provider Physician Assistant; PCP Physician Assistant; Referring Provider Obstetrics & Gynecology; Visit Provider Obstetrics & Gynecology
DX: O47.02 False labor before 37 completed weeks of gestation, second trimester (principal); Z3A.25 25 weeks gestation of pregnancy; Z88.1 Allergy status to other antibiotic agents
CPT/HCPCS: 59050; 84112; 99218; G0378

== ENCOUNTER 2018-08-21 17:16 | Outpatient (CLI) | payer MEDICAID, SELFPAY ==
[2018-08-21 18:20] VITALS: BMI 31.0
[2018-08-21 18:49] LABS: Bacteria 0 SEEN /hpf (None Seen); Mucous, Urine 0 SEEN /hpf (<or=2+); Red Blood Cells-Urine 0 SEEN /hpf (0-5)
[2018-08-21 19:15] LABS: Color, Urine Yellow (Yellow); Glucose, Dipstick Normal (Normal); Ketone-Dipstick Negative (Negative); Leukocyte Esterase-Dipstick Negative /ul (Negative); Nitrite-Dipstick Negative (Negative); Occult Blood-Urine Negative /ul (Negative); Protein-Dipstick Negative (Negative); Urine Bilirubin Dipstick Negative (Negative); Urine Clarity Clear (Clear); Urine Urobilinogen Normal (Normal)
[2018-08-21 19:19] LABS: Squamous Epithelial Cells - UA 0-5 SEEN /hpf (5-10); White Blood Cells 0-5 SEEN /hpf (0-5)
[2018-08-21] MEDS: Acetaminophen 500 MG Tablet 1000 MG PO (19:29)
--- NOTE | 2018-08-22 05:02 | OB.TRI.NOTE ---
History of Present Illness Was patient seen by the physician?: No Reason For Visit: Abdominal Pain Date of Service: 08/21/18 Final MARITZA: 11/20/18 Final MARITZA Source: US <20 weeks Gestational age: 27 Weeks and 0 Days History of Present Illness: 27-week intrauterine with abdominal pain rating 8 out of 10. Given this patient was sent to labor and delivery. Patient denies any vaginal bleeding and is reporting good movement. Allergies cefdinir [From Omnicef] Allergy (Verified 08/21/18 18:21) Nausea cefuroxime [From Ceftin] Allergy (Verified 08/21/18 18:21) Nausea Laboratory Studies: Laboratory Tests 08/21/18 Range/Units 18:35 Urine Color Yellow (Yellow) Urine Clarity Clear (Clear) Urine pH 7.0 (5.0 - 8.0) Ur Specific [place] 1.010 (1.002-1.030) Urine Protein Negative (Negative) mg/dl Urine Glucose (UA) Normal (Normal) mg/dl Urine Ketones Negative (Negative) mg/dl Urine Occult Blood Negative (Negative) /ul Urine Nitrite Negative (Negative) Urine Bilirubin Negative (Negative) mg/dL Urine Urobilinogen Normal (Normal) mg/dl Ur Leukocyte Esterase Negative (Negative) /ul Urine RBC 0 SEEN (0-5) /hpf Urine WBC 0-5 SEEN (0-5) /hpf Ur Squamous Epith Cells 0-5 SEEN (5-10) /hpf Urine Bacteria 0 SEEN (None Seen) /hpf Urine Mucus 0 SEEN (<or=2+) /hpf NST - FHR Rate Baby A NST Reactive:: Yes FHR Category:: Category I Impression/Plan 27-week intrauterine with musculoskeletal discomfort from . Likely round ligament pain. Reactive nonstress test despite gestational age. Urine analysis was negative. Cervix was closed thick and high. No contractions noted on monitor. After Tylenol patient's abdominal pain subsided markedly and was only noted when baby moved. Given this, will release to home with routine instructions and follow-up early next week.
== END 2018-08-21 20:18 | disposition home or self-care (01) ==
LOC: WPOUT 17:25 → WP 08-22 06:58
PROVIDERS: Referring Provider Obstetrics & Gynecology; Visit Provider Obstetrics & Gynecology
DX: O26.892 Other specified pregnancy related conditions, second trimester (principal); R10.9 Unspecified abdominal pain; Z3A.27 27 weeks gestation of pregnancy
CPT/HCPCS: 59025; 59050; 81001; 87086; 87088; 94760; 99218; G0378

== ENCOUNTER → 2018-08-26 | Outpatient (CLI) | payer MEDICAID, SELFPAY ==
[2018-08-12 17:27] VITALS: BMI 30.7
[2018-08-26 17:42] LABS: Hematocrit 35.7 % (37-47); Mean Corp Hgb Conc 33.6 g/gl (32-36); Mean Corpuscular Hgb 28.6 pg (27.0-32.0); Mean Corpuscular Volume 85.2 fL (81-99); Mean Platelet Vol. 8.6 fl (6.2-12.0); Platelet Count 241 K/mm3 (150-450); RBC Distribution Width CV 13.7 % (11.6-14.6); RBC Distribution Width SD 42.1 fl (35.1-43.9); Red Blood Count 4.19 M/mm3 (4.2-5.4); White Blood Count 14.9 K/mm3 (4.4-11.0)
[2018-08-26 17:46] LABS: Glucose Challenge Gest 1H 50g 119 mg/dL (70-140); Scan Indicated on CBC? Y/N NO
== END | disposition home or self-care (01) ==
LOC: WOBLAB 16:11
PROVIDERS: Visit Provider Obstetrics & Gynecology
DX: Z34.82 Encounter for supervision of other normal pregnancy, second trimester (principal)
CPT/HCPCS: 36415; 82950; 85027

== ENCOUNTER → 2018-09-16 14:13 | Outpatient (CLI) | payer MEDICAID, SELFPAY | PROVIDERS: Visit Provider Obstetrics & Gynecology | DX: N39.0 Urinary tract infection, site not specified (principal) | CPT/HCPCS: 87086; 87088 ==

== ENCOUNTER 2018-09-18 16:45 | Outpatient (CLI) | payer MEDICAID, SELFPAY ==
[2018-09-18 16:57] VITALS: BMI 30.7
[2018-09-18 17:58] LABS: Fetal Fibronectin POSITIVE
[2018-09-18 18:26] LABS: Mucous, Urine 0 SEEN /hpf (<or=2+); Red Blood Cells-Urine 0 SEEN /hpf (0-5)
[2018-09-18] MEDS: Nalbuphine 10 MG/ML Ampul 5 MG IV (18:37)
[2018-09-18] MEDS: Dextrose 5%-Lactated Ringers 1,000 ML 999 ML IV (18:37)
[2018-09-18] MEDS: Betamethasone/Betamethasone 30 MG/5 ML Vial 12 MG IM (18:38)
[2018-09-18 18:51] LABS: Absolute Lymphocyte Count 2.31 X10^3/ul (0.83-4.51); Absolute Neutrophil Count 11.3 X10^3/uL (2.0-7.7); Basophil# 0.01 X10^3/uL; Basophil% 0.1 % (0-1); Eosinophil# 0.05 X10^3/uL; Eosinophils% 0.3 % (0-5); Hematocrit 34.9 % (37-47); Lymphocyte # 2.31 X10^3/ul (4.0); Lymphocyte % 15.5 % (19-41); Mean Corp Hgb Conc 34.4 g/gl (32-36); Mean Corpuscular Volume 84.3 fL (81-99); Mean Platelet Vol. 8.8 fl (6.2-12.0); Monocyte# 1.08 X10^3/uL; Monocyte% 7.3 % (0-10); Neutrophil # 11.33 X10^3/uL (2.7-7.7); Neutrophil % 76.1 % (47-70); Platelet Count 212 K/mm3 (150-450); RBC Distribution Width CV 13.7 % (11.6-14.6); RBC Distribution Width SD 42.1 fl (35.1-43.9); Red Blood Count 4.14 M/mm3 (4.2-5.4); White Blood Count 14.9 K/mm3 (4.4-11.0)
[2018-09-18 18:53] LABS: POSITIVE COUNT NO; POSITIVE DIFFERENTIAL NO; POSITIVE MORPHOLOGY NO
[2018-09-18 19:18] LABS: Color, Urine Yellow (Yellow); Glucose, Dipstick Normal (Normal); Ketone-Dipstick Negative (Negative); Leukocyte Esterase-Dipstick Negative /ul (Negative); Nitrite-Dipstick Negative (Negative); Occult Blood-Urine Negative /ul (Negative); Protein-Dipstick Negative (Negative); Urine Bilirubin Dipstick Negative (Negative); Urine Clarity Clear (Clear); Urine Urobilinogen Normal (Normal)
[2018-09-18 19:20] LABS: Squamous Epithelial Cells - UA 0-5 SEEN /hpf (5-10); White Blood Cells 0-5 SEEN /hpf (0-5)
[2018-09-18 19:21] LABS: Bacteria 1+ /hpf (None Seen)
--- NOTE | 2018-09-19 07:50 | OB.TRI.NOTE ---
History of Present Illness Date of Service: 09/18/18 Was patient seen by the physician?: No Reason For Visit: DECREASED MOVEMENT / BACKPAIN Date of Service: 09/18/18 Final MARITZA: 11/20/18 Final MARITZA Source: US <20 weeks Gestational age: 31 Weeks and 1 Days History of Present Illness: Complaints of right lateral low back/hip pain. No complaints of contractions. Some scant pink discharge. Somewhat decreased movement. Allergies cefdinir [From Omnicef] Allergy (Verified 08/21/18 18:21) Nausea cefuroxime [From Ceftin] Allergy (Verified 08/21/18 18:21) Nausea Laboratory Studies: Laboratory Tests 09/18/18 09/18/18 09/18/18 Range/Units 18:15 18:15 17:10 WBC 14.9 H (4.4-11.0) K/mm3 RBC 4.14 L (4.2-5.4) M/mm3 Hgb 12.0 (12.0-15.0) g/dl Hct 34.9 L (37-47) % MCV 84.3 (81-99) fL MCH 29.0 (27.0-32.0) pg MCHC 34.4 (32-36) g/gl RDW 13.7 (11.6-14.6) % RDW Differential 42.1 (35.1-43.9) fl Plt Count 212 (150-450) K/mm3 MPV 8.8 (6.2-12.0) fl Immature Gran % (Auto) 0.700 (0.0-0.9) % Neut % (Auto) 76.1 H (47-70) % Lymph % (Auto) 15.5 L (19-41) % [place] % (Auto) 7.3 (0-10) % Eos % (Auto) 0.3 (0-5) % Baso % (Auto) 0.1 (0-1) % Absolute Neuts (auto) 11.3 H (2.0-7.7) X10^3/uL Absolute Lymphs (auto) 2.31 (0.83-4.51) X10^3/ul Total Counted Not Reportable Urine Color Yellow (Yellow) Urine Clarity Clear (Clear) Urine pH 7.0 (5.0 - 8.0) Ur Specific [place] 1.010 (1.002-1.030) Urine Protein Negative (Negative) mg/dl Urine Glucose (UA) Normal (Normal) mg/dl Urine Ketones Negative (Negative) mg/dl Urine Occult Blood Negative (Negative) /ul Urine Nitrite Negative (Negative) Urine Bilirubin Negative (Negative) mg/dL Urine Urobilinogen Normal (Normal) mg/dl Ur Leukocyte Esterase Negative (Negative) /ul Urine RBC 0 SEEN (0-5) /hpf Urine WBC 0-5 SEEN (0-5) /hpf Ur Squamous Epith Cells 0-5 SEEN (5-10) /hpf Urine Bacteria 1+ (None Seen) /hpf Urine Mucus 0 SEEN (<or=2+) /hpf Fibronectin POSITIVE H Physical Exam General: Alert, Oriented x3, Cooperative, No apparent distress Lungs: Clear to auscultation, Normal air movement Abdomen: Soft, Non Tender, Non-Distended, Gravid, Appropriate for Gestational Age Extremities:: No edema Neurological: Neuro grossly intact 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 FFN positive. Cervix closed. Does not appear to be in labor. No signs of PPROM. Reassuring heart rate tracing. She was give a low dose of Nubain IV which resulted in a decrease in her pain. Given history or 36 week prior delivery and positive FFN she was given one dose of Celestone. She will repeat this in 24 hours. I will see her in the office on 09/19 and will perform a cervical length and discuss implication of +FFN testing then.
== END 2018-09-18 19:49 | disposition home or self-care (01) ==
LOC: WPOUT 16:48 → WP 16:50
PROVIDERS: Referring Provider Obstetrics & Gynecology; Visit Provider Obstetrics & Gynecology
DX: O36.8130 Decreased fetal movements, third trimester, not applicable or unspecified (principal); Z3A.31 31 weeks gestation of pregnancy; Z88.1 Allergy status to other antibiotic agents
CPT/HCPCS: 96361; 96374; 36415; 59025; 59050; 81001; 82731; 85025; 87086; 87088; 96372; 99218; G0378; J0702

== ENCOUNTER 2018-09-19 18:24 | Outpatient (CLI) | payer MEDICAID, SELFPAY ==
[2018-09-19 18:34] VITALS: BMI 31.0
[2018-09-19] MEDS: Betamethasone/Betamethasone 30 MG/5 ML Vial 12 MG IM (19:18)
--- NOTE | 2018-09-20 08:54 | OB.TRI.NOTE ---
History of Present Illness Date of Service: 09/19/18 Was patient seen by the physician?: No Reason For Visit: INJECTION Final MARITZA Source: US <20 weeks History of Present Illness: 23 yo at 31 1/7 wk with positive FFN in ofc ? funneling of cervix. Sent for Celestone injection in case early delivery. Celestone given. Sent home. Allergies cefdinir [From Omnicef] Adverse Reaction (Mild, Verified 08/12/18 18:03) Nausea
== END 2018-09-19 19:25 | disposition home or self-care (01) ==
LOC: WPOUT 18:28 → WP 18:28
PROVIDERS: Visit Provider Obstetrics & Gynecology
DX: Z34.93 Encounter for supervision of normal pregnancy, unspecified, third trimester (principal)
CPT/HCPCS: 96372; 99218; G0378; J0702

== ENCOUNTER 2018-09-21 19:05 | Observation (INO) | payer MEDICAID, SELFPAY ==
[2018-09-21 20:01] LABS: Mucous, Urine 0 SEEN /hpf (<or=2+); Red Blood Cells-Urine 0 SEEN /hpf (0-5); White Blood Cells 0 SEEN /hpf (0-5)
[2018-09-21 20:24] LABS: Color, Urine Yellow (Yellow); Glucose, Dipstick Normal (Normal); Ketone-Dipstick Negative (Negative); Leukocyte Esterase-Dipstick 25 /ul (Negative); Nitrite-Dipstick Negative (Negative); Occult Blood-Urine Negative /ul (Negative); Protein-Dipstick Negative (Negative); Specific Gravity, Urine 1.005 (1.002-1.030); Urine Bilirubin Dipstick Negative (Negative); Urine Clarity Clear (Clear); Urine Urobilinogen Normal (Normal)
[2018-09-21 20:34] LABS: Bacteria RARE /hpf (None Seen); Squamous Epithelial Cells - UA 0-5 SEEN /hpf (5-10)
[2018-09-21 20:59] VITALS: BMI 31.1
--- NOTE | 2018-09-22 09:07 | OB.TRI.NOTE ---
History of Present Illness Date of Service: 09/21/18 Was patient seen by the physician?: No Reason For Visit: RULE OUT LABOR Date of Service: 09/21/18 Final MARITZA: 11/20/18 Final MARITZA Source: US <20 weeks Gestational age: 31 Weeks and 3 Days History of Present Illness: 31+ week intrauterine presents with some mild transient contractions. Patient with good movement and denies any vaginal bleeding. Allergies cefdinir [From Omnicef] Adverse Reaction (Mild, Verified 09/21/18 20:57) Nausea Laboratory Studies: Laboratory Tests 09/21/18 Range/Units 19:20 Urine Color Yellow (Yellow) Urine Clarity Clear (Clear) Urine pH 7.0 (5.0 - 8.0) Ur Specific [place] 1.005 (1.002-1.030) Urine Protein Negative (Negative) mg/dl Urine Glucose (UA) Normal (Normal) mg/dl Urine Ketones Negative (Negative) mg/dl Urine Occult Blood Negative (Negative) /ul Urine Nitrite Negative (Negative) Urine Bilirubin Negative (Negative) mg/dL Urine Urobilinogen Normal (Normal) mg/dl Ur Leukocyte Esterase 25 H (Negative) /ul Urine RBC 0 SEEN (0-5) /hpf Urine WBC 0 SEEN (0-5) /hpf Ur Squamous Epith Cells 0-5 SEEN (5-10) /hpf Urine Bacteria RARE (None Seen) /hpf Urine Mucus 0 SEEN (<or=2+) /hpf Physical Exam Cervix Dilation (cm): 0 Station: -3 Effacement (%): 50 NST - FHR Rate Baby A NST Reactive:: Yes FHR Category:: Category I Impression/Plan 31+ week intrauterine with transient contractions. He UA was negative. Oral fluids pushed while here for visit. Cervix is nonthreatening. Will discharge to home with routine instructions.
== END 2018-09-21 21:10 | disposition home or self-care (01) ==
LOC: WP 19:46
PROVIDERS: Admitting Provider Obstetrics & Gynecology; Referring Provider Obstetrics & Gynecology; Visit Provider Obstetrics & Gynecology
DX: O62.9 Abnormality of forces of labor, unspecified (principal); Z3A.31 31 weeks gestation of pregnancy
CPT/HCPCS: 59025; 59050; 81001; 87086; 87088; 99218; G0378

== ENCOUNTER 2018-10-03 18:45 | Outpatient (CLI) | payer MEDICAID, SELFPAY ==
[2018-10-03 19:09] LABS: Bacteria 0 SEEN /hpf (None Seen); Mucous, Urine 0 SEEN /hpf (<or=2+); Red Blood Cells-Urine 0 SEEN /hpf (0-5); White Blood Cells 0 SEEN /hpf (0-5)
[2018-10-03 19:17] LABS: Color, Urine Yellow (Yellow); Glucose, Dipstick Normal (Normal); Ketone-Dipstick Negative (Negative); Leukocyte Esterase-Dipstick Negative /ul (Negative); Nitrite-Dipstick Negative (Negative); Occult Blood-Urine Negative /ul (Negative); Protein-Dipstick Negative (Negative); Specific Gravity, Urine 1.015 (1.002-1.030); Urine Bilirubin Dipstick Negative (Negative); Urine Clarity Sl. Cloudy (Clear); Urine Urobilinogen Normal (Normal)
[2018-10-03 19:24] LABS: Amorphous Sediment 1+ PHOS; Squamous Epithelial Cells - UA 5-10 SEEN /hpf (5-10)
[2018-10-03 19:31] LABS: ROM Internal Control Test YES-OK TO RESULT pt. (Internal QC); ROM Patient Test Negative (Negative)
[2018-10-03 19:35] VITALS: BMI 31.4
--- NOTE | 2018-10-03 19:45 | OB.TRI.NOTE ---
- Problem List (1) 33 weeks gestation of Status: Acute History of Present Illness Date of Service: 10/03/18 Was patient seen by the physician?: Yes Reason For Visit: RULE OUT SROM Date of Service: 10/03/18 Final MARITZA: 11/20/18 Final MARITZA Source: US <20 weeks Gestational age: 33 Weeks and 1 Days History of Present Illness: c/o leaking of fluid. Denies fever, chills. Has nausea intermittently, no vomiting. No URI or urinary sx. + FM. +cramping with contractions q7-10 minutes the last few hours. No vaginal bleeding. Evaluated 2 weeks for threatened labor and s/p betamethasone 09/19- with positive FFN. Exam then 1cm (3cm documented at outer os however). Prior hx 36w delivery. Allergies acetaminophen [From Cephadyn] Allergy (Verified 10/03/18 19:34) Nausea/Vom/Diarrhea butalbital [From Cephadyn] Allergy (Verified 10/03/18 19:34) Nausea/Vom/Diarrhea cefdinir [From Omnicef] Adverse Reaction (Mild, Verified 09/21/18 20:57) Nausea Laboratory Studies: Laboratory Tests 10/03/18 10/03/18 Range/Units 19:00 18:58 Urine Color Yellow (Yellow) Urine Clarity Sl. Cloudy (Clear) Urine pH 7.0 (5.0 - 8.0) Ur Specific [place] 1.015 (1.002-1.030) Urine Protein Negative (Negative) mg/dl Urine Glucose (UA) Normal (Normal) mg/dl Urine Ketones Negative (Negative) mg/dl Urine Occult Blood Negative (Negative) /ul Urine Nitrite Negative (Negative) Urine Bilirubin Negative (Negative) mg/dL Urine Urobilinogen Normal (Normal) mg/dl Ur Leukocyte Esterase Negative (Negative) /ul Urine RBC 0 SEEN (0-5) /hpf Urine WBC 0 SEEN (0-5) /hpf Ur Squamous Epith Cells 5-10 SEEN (5-10) /hpf Amorphous Sediment 1+ PHOS Urine Bacteria 0 SEEN (None Seen) /hpf Urine Mucus 0 SEEN (<or=2+) /hpf Vag Amniotic Fld Detect Negative (Negative) Review of Systems Constitutional: Denies: Fever HEENT: Denies: Ear Pain, Sore Throat Respiratory: Denies: Cough Gastrointestinal: Reports: Nausea. 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 outer os and different examiners) I will repeat SVE in 2-3 hours to reassess if second course of steroids indicated at this time.
--- NOTE | 2018-10-03 22:02 | OB.TRI.PN ---
Progress Notes Date of Service: 10/03/18 Progress Note: Patient reports contractions persist with increasing intensity. FHR Cat I. Ctx 2/10 min on toco. SVE 3/60/-3 moderate and midposition by my exam. Bedside US - fetus cephalic, active, anterior fundal placenta, RADHA 8cm. Findings reviewed with patient. Will start second course betamethasone, Nifedipine for tocolysis and IV fluids. Laboratory Studies: Laboratory Tests 10/03/18 10/03/18 Range/Units 19:00 18:58 Urine Color Yellow (Yellow) Urine Clarity Sl. Cloudy (Clear) Urine pH 7.0 (5.0 - 8.0) Ur Specific [place] 1.015 (1.002-1.030) Urine Protein Negative (Negative) mg/dl Urine Glucose (UA) Normal (Normal) mg/dl Urine Ketones Negative (Negative) mg/dl Urine Occult Blood Negative (Negative) /ul Urine Nitrite Negative (Negative) Urine Bilirubin Negative (Negative) mg/dL Urine Urobilinogen Normal (Normal) mg/dl Ur Leukocyte Esterase Negative (Negative) /ul Urine RBC 0 SEEN (0-5) /hpf Urine WBC 0 SEEN (0-5) /hpf Ur Squamous Epith Cells 5-10 SEEN (5-10) /hpf Amorphous Sediment 1+ PHOS Urine Bacteria 0 SEEN (None Seen) /hpf Urine Mucus 0 SEEN (<or=2+) /hpf Vag Amniotic Fld Detect Negative (Negative)
[2018-10-03] MEDS: Betamethasone/Betamethasone 30 MG/5 ML Vial 12 MG IM (22:15)
[2018-10-03] MEDS: NIFEdipine 10 MG Capsule PO (22:23)
[2018-10-03] MEDS: 0.9% Normal Saline 1,000 ML 125 ML IV (22:45)
[2018-10-03 23:39] LABS: Hematocrit 33.4 % (37-47); Hemoglobin 11.5 g/dl (12.0-15.0); Mean Corp Hgb Conc 34.4 g/gl (32-36); Mean Corpuscular Hgb 28.6 pg (27.0-32.0); Mean Corpuscular Volume 83.1 fL (81-99); Platelet Count 206 K/mm3 (150-450); RBC Distribution Width CV 13.5 % (11.6-14.6); RBC Distribution Width SD 39.9 fl (35.1-43.9); Red Blood Count 4.02 M/mm3 (4.2-5.4); White Blood Count 14.5 K/mm3 (4.4-11.0)
[2018-10-03 23:43] LABS: Scan Indicated on CBC? Y/N NO
[2018-10-03] MEDS: Acetaminophen 500 MG Tablet 1000 MG PO (23:58)
[2018-10-04 00:24] LABS: Group B Strep DNA By PCR Negative (Negative); Specimen Processing Control PASS
[2018-10-04 00:25] LABS: Internal Control PASS; Probe Check PASS
[2018-10-04] MEDS: 0.9% Normal Saline 1,000 ML 125 ML IV (01:59)
[2018-10-04] MEDS: Acetaminophen 500 MG Tablet 1000 MG PO (07:54)
[2018-10-04] MEDS: NIFEdipine 10 MG Capsule PO ×2 (09:02→14:43)
--- NOTE | 2018-10-04 09:11 | OB.TRI.PN_ITS ---
Progress Notes Date of Service: 10/04/18 Progress Note: 23yo @ 33.2 wga with threatened labor. S: Relates contractions q10min in lower abdomen and back. Had light bleeding after exam overnight. +FM. No LOF. O: AVSS GEN - NAD, AAO x 3 FHR 130, moderate variability, + accelerations, no decelerations TOCO no contractions ABD - gravid, soft, nontender, mild contraction palpated EXT - no calf tenderness or LE edema A/P: Threatened labor -GBS PCR neg, cx pending -SVE deferred, no progression of contractions -Continue betamethasone course -Resume Nifedipine for tocolysis -Continuous monitoring Laboratory Studies: Laboratory Tests 10/03/18 10/03/18 10/03/18 Range/Units 23:15 23:15 22:40 WBC 14.5 H (4.4-11.0) K/mm3 RBC 4.02 L (4.2-5.4) M/mm3 Hgb 11.5 L (12.0-15.0) g/dl Hct 33.4 L (37-47) % MCV 83.1 (81-99) fL MCH 28.6 (27.0-32.0) pg MCHC 34.4 (32-36) g/gl RDW 13.5 (11.6-14.6) % RDW Differential 39.9 (35.1-43.9) fl Plt Count 206 (150-450) K/mm3 MPV 9.0 (6.2-12.0) fl Urine Color (Yellow) Urine Clarity (Clear) Urine pH (5.0 - 8.0) Ur Specific [place] (1.002-1.030) Urine Protein (Negative) mg/dl Urine Glucose (UA) (Normal) mg/dl Urine Ketones (Negative) mg/dl Urine Occult Blood (Negative) /ul Urine Nitrite (Negative) Urine Bilirubin (Negative) mg/dL Urine Urobilinogen (Normal) mg/dl Ur Leukocyte Esterase (Negative) /ul Urine RBC (0-5) /hpf Urine WBC (0-5) /hpf Ur Squamous Epith Cells (5-10) /hpf Amorphous Sediment Urine Bacteria (None Seen) /hpf Urine Mucus (<or=2+) /hpf Vag Amniotic Fld Detect (Negative) Group B Strep DNA Negative (Negative) Specimen Comment Not Reportable Blood Type O POSITIVE Antibody Screen NEGATIVE 10/03/18 10/03/18 Range/Units 19:00 18:58 WBC (4.4-11.0) K/mm3 RBC (4.2-5.4) M/mm3 Hgb (12.0-15.0) g/dl Hct (37-47) % MCV (81-99) fL MCH (27.0-32.0) pg MCHC (32-36) g/gl RDW (11.6-14.6) % RDW Differential (35.1-43.9) fl Plt Count (150-450) K/mm3 MPV (6.2-12.0) fl Urine Color Yellow (Yellow) Urine Clarity Sl. Cloudy (Clear) Urine pH 7.0 (5.0 - 8.0) Ur Specific [place] 1.015 (1.002-1.030) Urine Protein Negative (Negative) mg/dl Urine Glucose (UA) Normal (Normal) mg/dl Urine Ketones Negative (Negative) mg/dl Urine Occult Blood Negative (Negative) /ul Urine Nitrite Negative (Negative) Urine Bilirubin Negative (Negative) mg/dL Urine Urobilinogen Normal (Normal) mg/dl Ur Leukocyte Esterase Negative (Negative) /ul Urine RBC 0 SEEN (0-5) /hpf Urine WBC 0 SEEN (0-5) /hpf Ur Squamous Epith Cells 5-10 SEEN (5-10) /hpf Amorphous Sediment 1+ PHOS Urine Bacteria 0 SEEN (None Seen) /hpf Urine Mucus 0 SEEN (<or=2+) /hpf Vag Amniotic Fld Detect Negative (Negative) Group B Strep DNA (Negative) Specimen Comment Blood Type Antibody Screen
--- NOTE | 2018-10-04 17:22 | PCM.PN.BLA ---
Progress Note OBSERVATION Feeling much better 33 + wk UCs / labor. Has been stable on PO Nifedipine 10 mg po q 6 hr. S/P first dose of betamethasone and repeating dose this evening. EFM category I tracing. Rare UC noted Cx deferred as not painful A/P: 33 w 2d UCs, labor. Stable on procardia. had prior h/o 36 wk delivery, stopped 17-OH progesterone 2/2 N/V. Plan second dose of Betamethasone by 8 pm (two hours early) then dischg home on PO Procardia. Return if inc s/sx of labor. Bedrest, pelvic rest until 35-36 wk RTO for visit within 1 wk.
[2018-10-04] MEDS: Betamethasone/Betamethasone 30 MG/5 ML Vial 12 MG IM (20:06)
[2018-10-04 20:14] VITALS: RESP 18
== END 2018-10-04 20:14 | disposition home or self-care (01) ==
LOC: WPOUT 18:52 → WP 18:53
PROVIDERS: Family Provider Obstetrics & Gynecology; Visit Provider Obstetrics & Gynecology
DX: O47.03 False labor before 37 completed weeks of gestation, third trimester (principal); Z3A.33 33 weeks gestation of pregnancy; O21.2 Late vomiting of pregnancy
CPT/HCPCS: 96360; 96361 ×8; 36415; 59025; 59050; 76815; 81001; 84112; 85027; 86850; 86900; 87081; 87653; 96372; 99218; J7030; J7040; G0378; J0702

== ENCOUNTER → 2018-10-15 13:39 | Outpatient (CLI) | payer MEDICAID, SELFPAY ==
[2018-10-15 13:39] VITALS: BMI 30.7
[2018-10-15 15:53] LABS: Protein, Urine (Random) < 6.0 mg/dL (<11.9)
[2018-10-15 15:57] LABS: ALB/GLOB Ratio 0.7 RATIO (0.9-2.4); AST(SGOT) 10 U/L (15-37); Alanine Aminotransfer ALT/SGPT 15 U/L (13-56); Albumin, Serum 2.8 g/dL (3.2-5.0); Alkaline Phosphatase 160 U/L (45-117); Anion Gap 8 (5-15); BUN 4 mg/dL (7-18); BUN/Creat Ratio 6.7 RATIO (10-20); Chloride 107 mmol/L (98-107); EST Glomerular Filtration Rate 132 mL/min (>60); Est Glom Filt Rate - Afr Amer 160 mL/min (>60); Globulin 4.1 g/dL (2.2-4.2); Glucose 109 mg/dL (74-106); Potassium 3.6 mmol/L (3.5-5.1); Protein, Total 6.9 g/dL (6.4-8.2); Sodium Level 135 mmol/L (136-145); Uric Acid 4.1 mg/dL (2.6-6.0)
== END ==
PROVIDERS: Visit Provider Obstetrics & Gynecology
DX: Z34.83 Encounter for supervision of other normal pregnancy, third trimester (principal)
CPT/HCPCS: 36415; 80053; 82570; 84156; 84550

== ENCOUNTER 2018-10-21 21:30 | Outpatient (CLI) | payer MEDICAID, SELFPAY ==
[2018-10-15 13:39] VITALS: BMI 30.7
[2018-10-21 22:29] VITALS: BMI 32.1
[2018-10-21 22:29] LABS: Bacteria 0 SEEN /hpf (None Seen); Mucous, Urine 0 SEEN /hpf (<or=2+); Red Blood Cells-Urine 0 SEEN /hpf (0-5)
[2018-10-21 22:34] LABS: Color, Urine Yellow (Yellow); Glucose, Dipstick Normal (Normal); Ketone-Dipstick 5 mg/dl (Negative); Leukocyte Esterase-Dipstick 25 /ul (Negative); Nitrite-Dipstick Negative (Negative); Occult Blood-Urine Negative /ul (Negative); Protein-Dipstick 15 mg/dl (Negative); Urine Bilirubin Dipstick Negative (Negative); Urine Clarity Clear (Clear); Urine Urobilinogen Normal (Normal)
[2018-10-21 22:42] LABS: Squamous Epithelial Cells - UA 10-25 SEEN /hpf (5-10); White Blood Cells 0-5 SEEN /hpf (0-5)
[2018-10-21 22:52] LABS: ROM Internal Control Test YES-OK TO RESULT pt. (Internal QC); ROM Patient Test Negative (Negative)
[2018-10-21] MEDS: Acetaminophen 500 MG Tablet 1000 MG PO (23:51)
[2018-10-21 23:59] VITALS: RESP 18
--- NOTE | 2018-11-15 09:11 | OB.TRI.HP_ITS ---
History of Present Illness Date of Service: 10/21/18 Was patient seen by the physician?: No Reason For Visit: RULE OUT LABOR Date of Service: 10/21/18 Final MARITZA: 11/20/18 Final MARITZA Source: US <20 weeks Gestational age: 35 Weeks and 6 Days History of Present Illness: 35+ week intrauterine presents with some contractions. Concerned that she might be in labor. Allergies acetaminophen [From Cephadyn] Allergy (Verified 10/30/18 17:39) Nausea/Vom/Diarrhea butalbital [From Cephadyn] Allergy (Verified 10/30/18 17:39) Nausea/Vom/Diarrhea cefuroxime [From Ceftin] Allergy (Verified 10/30/18 17:39) Nausea cefdinir [From Omnicef] Adverse Reaction (Mild, Verified 10/30/18 17:39) Nausea Laboratory Studies: Laboratory Tests 10/21/18 10/21/18 Range/Units 21:56 21:40 Urine Color Yellow (Yellow) Urine Clarity Clear (Clear) Urine pH 6.0 (5.0 - 8.0) Ur Specific Claude 1.020 (1.002-1.030) Urine Protein 15 H (Negative) mg/dl Urine Glucose (UA) Normal (Normal) mg/dl Urine Ketones 5 H (Negative) mg/dl Urine Occult Blood Negative (Negative) /ul Urine Nitrite Negative (Negative) Urine Bilirubin Negative (Negative) mg/dL Urine Urobilinogen Normal (Normal) mg/dl Ur Leukocyte Esterase 25 H (Negative) /ul Urine RBC 0 SEEN (0-5) /hpf Urine WBC 0-5 SEEN (0-5) /hpf Ur Squamous Epith Cells 10-25 SEEN (5-10) /hpf Urine Bacteria 0 SEEN (None Seen) /hpf Urine Mucus 0 SEEN (<or=2+) /hpf Vag Amniotic Fld Detect Negative (Negative) Physical Exam Vitals: Vital Signs Resp 18 10/21/18 23:59 NST - FHR Rate Baby A NST Reactive:: Yes FHR Category:: Category I Impression/Plan 35+ week intrauterine with transient contractions. Cervix unchanged up after observation. ROM plus test was negative. Has appointment in the office the next day. To call with increasing contractions. Monitor movement.
== END 2018-10-21 23:59 | disposition home or self-care (01) ==
LOC: WPOUT 22:05 → WP 22:09
PROVIDERS: Visit Provider Obstetrics & Gynecology
DX: O26.893 Other specified pregnancy related conditions, third trimester (principal); N85.8 Other specified noninflammatory disorders of uterus; Z3A.35 35 weeks gestation of pregnancy; Z88.1 Allergy status to other antibiotic agents
CPT/HCPCS: 59025; 59050; 81001; 84112; 99218; G0378

== ENCOUNTER 2018-10-28 12:29 | Outpatient (CLI) | payer MEDICAID, SELFPAY ==
[2018-10-28 12:46] VITALS: BMI 32.1
[2018-10-28 15:51] LABS: Bacteria 0 SEEN /hpf (None Seen); Mucous, Urine 0 SEEN /hpf (<or=2+); Red Blood Cells-Urine 0 SEEN /hpf (0-5); Squamous Epithelial Cells - UA 0 SEEN /hpf (5-10); White Blood Cells 0 SEEN /hpf (0-5)
[2018-10-28 16:11] LABS: Color, Urine Yellow (Yellow); Glucose, Dipstick Normal (Normal); Ketone-Dipstick Negative (Negative); Leukocyte Esterase-Dipstick Negative /ul (Negative); Nitrite-Dipstick Negative (Negative); Occult Blood-Urine Negative /ul (Negative); Protein-Dipstick Negative (Negative); Urine Bilirubin Dipstick Negative (Negative); Urine Clarity Clear (Clear); Urine Urobilinogen Normal (Normal); Urine pH 6.5 (5.0 - 8.0)
--- NOTE | 2018-10-29 07:21 | OB.TRI.NOTE ---
- Problem List (1) 36 weeks gestation of Status: Acute (2) False labor before 37 completed weeks of gestation Status: Acute Qualifiers: Trimester: third trimester Qualified Code(s): O47.03 - False labor before 37 completed weeks of gestation, third trimester History of Present Illness Date of Service: 10/28/18 Was patient seen by the physician?: No Reason For Visit: CONTRACTION MONITORING Final MARITZA: 11/20/18 Final MARITZA Source: US <20 weeks Gestational age: 36 Weeks and 5 Days History of Present Illness: 23yo @ 36 5/7wga sent from office for advanced cervical dilation - 4.5cm with contractions. Allergies acetaminophen [From Cephadyn] Allergy (Verified 10/28/18 12:47) Nausea/Vom/Diarrhea butalbital [From Cephadyn] Allergy (Verified 10/28/18 12:47) Nausea/Vom/Diarrhea cefuroxime [From Ceftin] Allergy (Verified 10/28/18 12:47) Nausea cefdinir [From Omnicef] Adverse Reaction (Mild, Verified 10/28/18 12:47) Nausea Laboratory Studies: Laboratory Tests 10/28/18 Range/Units 15:45 Urine Color Yellow (Yellow) Urine Clarity Clear (Clear) Urine pH 6.5 (5.0 - 8.0) Ur Specific [place] 1.010 (1.002-1.030) Urine Protein Negative (Negative) mg/dl Urine Glucose (UA) Normal (Normal) mg/dl Urine Ketones Negative (Negative) mg/dl Urine Occult Blood Negative (Negative) /ul Urine Nitrite Negative (Negative) Urine Bilirubin Negative (Negative) mg/dL Urine Urobilinogen Normal (Normal) mg/dl Ur Leukocyte Esterase Negative (Negative) /ul Urine RBC 0 SEEN (0-5) /hpf Urine WBC 0 SEEN (0-5) /hpf Ur Squamous Epith Cells 0 SEEN (5-10) /hpf Urine Bacteria 0 SEEN (None Seen) /hpf Urine Mucus 0 SEEN (<or=2+) /hpf NST - FHR Rate Baby A Baseline: 120 Variability:: Moderate Accelerations:: 15 x 15 Decelerations:: None NST Reactive:: Yes FHR Category:: Category I Uterine Activity:: 2/10 Impression/Plan 23yo @ 36 5/7wga with contractions, false labor, Cat I-II FHR -SVE unchanged x 2 -FHR with prolonged deceleration, otherwise Cat I - no further recurrence of decelerations with 2 hours of monitoring -d/c home
== END 2018-10-28 16:40 | disposition home or self-care (01) ==
LOC: WPOUT 12:40 → WP 12:40
PROVIDERS: Family Provider Obstetrics & Gynecology; Visit Provider Obstetrics & Gynecology
DX: O47.03 False labor before 37 completed weeks of gestation, third trimester (principal); Z3A.36 36 weeks gestation of pregnancy; Z88.1 Allergy status to other antibiotic agents
CPT/HCPCS: 59025; 59050; 81001; 99218; G0378

== ENCOUNTER 2018-10-30 18:20 | Inpatient (IN) | payer MEDICAID, SELFPAY ==
[2018-10-30 17:38] VITALS: BMI 32.4
[2018-10-30 18:16] LABS: ROM Internal Control Test YES-OK TO RESULT pt. (Internal QC)
[2018-10-30 18:17] LABS: ROM Patient Test POSITIVE (Negative)
[2018-10-30] MEDS: Lactated Ringers 1,000 ML 50 ML IV (18:35)
[2018-10-30 18:49] LABS: Absolute Lymphocyte Count 2.86 X10^3/uL (0.83-4.51); Absolute Neutrophil Count 10.3 X10^3/uL (2.0-7.7); Basophil# 0.04 X10^3/uL; Basophil% 0.3 % (0-1); Eosinophil# 0.05 X10^3/uL; Eosinophils% 0.3 % (0-5); Hematocrit 36.4 % (37-47); Hemoglobin 12.5 g/dL (12.0-15.0); Lymphocyte # 2.86 X10^3/ul (4.0); Lymphocyte % 19.7 % (19-41); Mean Corp Hgb Conc 34.3 g/dL (32-36); Mean Corpuscular Hgb 29.1 pg (27.0-32.0); Mean Corpuscular Volume 84.8 fL (81-99); Mean Platelet Vol. 9.3 fl (6.2-12.0); Monocyte# 1.14 X10^3/uL; Monocyte% 7.8 % (0-10); NRBC Flagged by Analyzer 0 % (0-5); Neutrophil % 70.9 % (47-70); Platelet Count 223 K/mm3 (150-450); RBC Distribution Width CV 13.3 % (11.6-14.6); RBC Distribution Width SD 40.8 fl (35.1-43.9); Red Blood Count 4.29 M/mm3 (4.2-5.4); White Blood Count 14.5 K/mm3 (4.4-11.0)
--- NOTE | 2018-10-30 18:51 | PCM.HPOB.BLA ---
History and Physical Date of Admission: 10/30/18 OB HISTORY AND PHYSICAL EXAMINATION History of this : 23 yo female Ab0 with EDC 11/20/2018 by Ultrasound, presents to Labor and Delivery at 37 wk with SROM and CC of UCs. care remarkable for : O positive Rubella Immune. GBS pending. (NEG at 33 wks) 1.) First child born at 36 weeks-- unable to tolerate progesterone injections. 2.) Low Vit D - replete - 3.) FOB has a sister with Spina Bifida, Wants msAFP drawn Pertinent Past Medical History: delivery at 36 wks. Allergies: Ceftin Medications: During - amoxicillin 500 mg tablet; Vitamin D3 4,000 unit capsule; 28 mg-800 mcg tablet; Vitamin D3 5,000 unit tablet; [place] 250 mg/mL intramuscular oil; cyclobenzaprine 10 mg tablet; promethazine 25 mg tablet; Flagyl 500 mg tablet Review of Systems: Non-contributory PHYSICAL EXAMINATION General Appearance: 23 yo female in no acute distress Vital Signs: AF, VSS Heart: RRR without rubs or gallops Lungs: CTA x 2 Breasts: deferred Abdomen: gravid Pelvis: adequate Cervix: 4/75/-2 Presentation: cephalic Fetus: Size: AGA Movement: present Heart: present 130-140 avg variability. Prolonged accels. Category I tracing. No UCs noted. Impression /Plan: Intrauterine . 37 wk EGA early labor with SROM. Admit. Pitocin induction. Epidural OK. May try nitrous oxide. Consider pitocin augmentation prn.
[2018-10-30 19:53] LABS: Group B Strep DNA By PCR Negative (Negative); Internal Control PASS; Probe Check PASS; Specimen Processing Control PASS
[2018-10-30] MEDS: Oxytocin 30 units/NS 500 ml 30 UNITS/500 ML IV.SOLN IV (19:53)
[2018-10-30] MEDS: Acetaminophen 325 MG Tablet PO (20:49)
[2018-10-30] MEDS: Lactated Ringers 1,000 ML 999 ML IV (21:45)
--- NOTE | 2018-10-30 23:23 | PCM.PN.BLA ---
Progress Note 37 wk SROM Epidural placed Pitocin at 6 mIU/min AVSS EFM: 120-130s avg variability Accels. UCs q 2-4 mins CX: 4/75/-2 at check 2141 A/P: 37 wk SROM. Induction after SROM. Continue pitocin per protocol. Category I tracing.
[2018-10-30] MEDS: fentaNYL-bupivacaine (epidural) 100 ML BAG EPIDURAL (23:28)
[2018-10-31] MEDS: Ondansetron 4 MG/2 ML Vial IV (00:33)
[2018-10-31] MEDS: Lactated Ringers 1,000 ML 50 ML IV ×2 (01:25→06:25)
[2018-10-31] MEDS: Mag Hydrox/Al Hydrox/Simeth 30 ML UDC PO (02:18)
[2018-10-31] MEDS: fentaNYL-bupivacaine (epidural) 100 ML BAG EPIDURAL (03:52)
--- NOTE | 2018-10-31 04:42 | PCM.PN.BLA ---
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 A/P: 37 1/7 wk labor. SROM. Continue pitocin Watch progress, descent, tolerance of labor.
--- NOTE | 2018-10-31 07:19 | PN_ITS ---
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 AROM: clear fluid IUPC placed A/P: 37 1/7 wk SROM. Pitocin induction after SROM. No further progress, AROM of forebag. IUPC placed to guide pitocin Reassuring EFM Continue labor.
[2018-10-31] MEDS: Oxytocin 30 units/NS 500 ml 30 UNITS/500 ML IV.SOLN 334 UNITS IV (10:30)
--- NOTE | 2018-10-31 10:34 | PCM.OPRPT ---
Vaginal Delivery Maternal Presentation: Spontaneous Rupture of Membranes 37 wk EGA SROM Method of Induction: Pitocin, Amniotomy Amniotic Membrane Rupture Type: Artificial - AROM of forebag -- both clear fluid Amniotic Fluid Description: Clear Final MARITZA: 11/20/18 Final MARITZA Source: US <20 weeks Gestational age: 37 Weeks and 1 Days Date of Procedure: 10/31/18 Pre-Operative Diagnosis: 37 wk SROM Post-Operative Diagnosis: 37 1/7 wk SROM Surgery/ Procedure Performed: Vacuum Assisted Vaginal Delivery Anesthesiologist: Iker Perez MD Type of Anesthesia: Epidural Description of Procedure: Vacuum assisted vaginal delivery 2/2 FHR decelerations in 80-90s. Epidural in place. Fully dilated. Miller in place. Vacuum assisted with one contraction into green zone on [place]. resulted in delivery OP. crandall viable male Ap 12/02 Routine cord blood for typing colllected PP exam: 1st posterior vaginal laceration, perineal laceration. Repaired to hemostatic, intact with 3-0 vicryl under epidura. No other lacerations Placenta delivered by spont expulsion, expression. Normal appearing with thick cord. Intact with trailing membranes EBL 150 cc Ray luba and needle counts correct times two Pt and infant tolerated delivery well To recovery, stable condition. Presentation: Vertex, ROP Placental Delivery Description: Spontaneous, Expressed Placenta Disposition: [facility] Cord Vessel Description: 3 Vessels Cord Entanglement: None - loose body cord times one reduced with delivery of shoulders. Estimated Blood Loss: 150 Infant A gender: Male (1 minute): 9 (5 minute): 9 Episiotomy Description: None Laceration: Midline, Perineal Extension/lac, Vaginal Extension/lac, 1st degree Medications given after delivery: IV Pitocin Complications: None
--- NOTE | 2018-10-31 10:40 | DCINST_ITS ---
Discharge Diet: No Restrictions Discharge Activity: May Shower, May Take a Tub Bath May resume sexual activity in: 4-6 weeks Additional Activity Instructions:: Nothing in the vagina for 4-6 weeks. You may return to work/school in 6 weeks. Additional Instructions: If you experience any of the following, contact your healthcare provider. * Bleeding that soaks a pad every hour for 2 hours * Fever 100.4 or higher * Unrelieved abdominal pain * Problems urinating (including inability to urinate or burning while urinating). * Visual changes * Severe headache * Flu-like symptoms * Pain or redness in one of both of your breasts * Pain, warmth, tenderness or swelling in your legs, especially the calf area * Frequent nausea and vomiting * Symptoms of depression or anxiety If you experience any of the following, call 911 or go to the nearest Emergency Room. * Chest pain * Problems breathing * Seizure activity * Partial or complete paralysis of a body part, slurred speech, weakness or drooping of the face, or a sudden inability to walk or hold your balance Allergies/Adverse Reactions: Allergies acetaminophen [From Cephadyn] Allergy (Verified 10/30/18 17:39) Nausea/Vom/Diarrhea butalbital [From Cephadyn] Allergy (Verified 10/30/18 17:39) Nausea/Vom/Diarrhea cefuroxime [From Ceftin] Allergy (Verified 10/30/18 17:39) Nausea cefdinir [From Omnicef] Adverse Reaction (Mild, Verified 10/30/18 17:39) Nausea Medications to take at Discharge Vit No.130/Iron/Folic [ Tablet] 1 each PO DAILY 08/12/18 Please Follow Up With: Jennifer Dubon MD - [phone] When: Call to make an appointment with your doctor in 6 weeks. Test Results: Test results from this visit will be discussed in further detail at your follow- up appointment, if applicable. Proposed Discharge Date: 11/02/18
--- NOTE | 2018-10-31 10:40 | PCM.DCVAG ---
Discharge Diet: No Restrictions Discharge Activity: May Shower, May Take a Tub Bath May resume sexual activity in: 4-6 weeks Additional Activity Instructions:: Nothing in the vagina for 4-6 weeks. You may return to work/school in 6 weeks. Additional Instructions: If you experience any of the following, contact your healthcare provider. Bleeding that soaks a pad every hour for 2 hours Fever 100.4 or higher Unrelieved abdominal pain Problems urinating (including inability to urinate or burning while urinating). Visual changes Severe headache Flu-like symptoms Pain or redness in one of both of your breasts Pain, warmth, tenderness or swelling in your legs, especially the calf area Frequent nausea and vomiting Symptoms of depression or anxiety If you experience any of the following, call 911 or go to the nearest Emergency Room. Chest pain Problems breathing Seizure activity Partial or complete paralysis of a body part, slurred speech, weakness or drooping of the face, or a sudden inability to walk or hold your balance Allergies/Adverse Reactions: Allergies acetaminophen [From Cephadyn] Allergy (Verified 10/30/18 17:39) Nausea/Vom/Diarrhea butalbital [From Cephadyn] Allergy (Verified 10/30/18 17:39) Nausea/Vom/Diarrhea cefuroxime [From Ceftin] Allergy (Verified 10/30/18 17:39) Nausea cefdinir [From Omnicef] Adverse Reaction (Mild, Verified 10/30/18 17:39) Nausea Medications to take at Discharge Vit No.130/Iron/Folic [ Tablet] 1 each PO DAILY 08/12/18 Please Follow Up With: Jennifer Dubon MD - [phone] When: Call to make an appointment with your doctor in 6 weeks. Test Results: Test results from this visit will be discussed in further detail at your follow-up appointment, if applicable. Proposed Discharge Date: 11/02/18
[2018-10-31] MEDS: Oxytocin 30 units/NS 500 ml 30 UNITS/500 ML IV.SOLN 167 UNITS IV (11:00)
[2018-10-31] MEDS: Acetaminophen 500 MG Tablet 1000 MG PO ×2 (14:28→23:11)
[2018-10-31 16:36] VITALS: BP 127/75; PULSE 73; RESP 16; TEMP 36.6; O2SAT 97
[2018-10-31] MEDS: Ibuprofen 600 MG Tablet PO (17:55)
[2018-10-31 20:23] VITALS: BP 132/82; PULSE 70; RESP 16; TEMP 36.8; O2SAT 97
[2018-11-01 00:14] VITALS: BP 118/70; PULSE 77; RESP 16; TEMP 36.6
[2018-11-01] MEDS: Ibuprofen 600 MG Tablet PO ×3 (00:51→13:38)
[2018-11-01 04:04] VITALS: BP 116/81; PULSE 84; RESP 16; TEMP 37.2
[2018-11-01 07:46] VITALS: BP 137/96; PULSE 71; RESP 20; TEMP 36.3
--- NOTE | 2018-11-01 08:36 | PCM.PN.OB ---
Subjective: PPD#1 vacuum assisted vaginal delivery Doing well Bottle feeding .Would like to go home today as has a 3 yr old at home. Bottle feeding. Baby doing well. (ecchymosis noted on vtx at site of [place]) - Physical Exam General: Alert, Oriented x3, Cooperative, No apparent distress HEENT: Atraumatic, EOMI Neck: Supple Abdomen: Soft - Fundus firm NT , inferior to umbilicus Psych/Mental Status: Normal Affect Vital Signs Temp Pulse Resp BP Pulse Ox 97.4 F L 71 20 H 137/96 H 97 11/01/18 07:46 11/01/18 07:46 11/01/18 07:46 11/01/18 07:46 10/31/18 20:23 Oxygen Delivery Method Room Air Weight: 85.729 kg Body Mass Index (BMI) 32.4 Intake and Output for Last 24 Hours 10/30/18 10/31/18 11/01/18 23:59 23:59 23:59 Intake Total 1862 / 1862 3414 / 3414 Output Total 200 / 200 1300 / 1300 Balance 1662 / 1662 2114 / 2114 Medical Necessity - Tobacco Use Smoking Status: Never smoker Assessment/Plan All Active Problems (This Medical Record has been edited. Action required.) 33 weeks gestation of (Acute) 36 weeks gestation of (Acute) False labor before 37 completed weeks of gestation (Acute) PPD#1 vacuum assisted vaginal delivery Home today if baby is released, per pt request. RTO in 6 wk for pp check, prn sooner.
[2018-11-01 13:07] VITALS: BP 134/81; PULSE 89; RESP 16; TEMP 36.5
--- NOTE | 2018-11-06 14:35 | NURSING ---
follow up call complete, patient staets she is doing well denies questions or concerns and states she was satisfied with her care
== END 2018-11-01 14:05 | disposition home or self-care (01) | DRG 560 ==
LOC: WPOUT 18:26 → WP 18:26
PROVIDERS: Admitting Provider Obstetrics & Gynecology; Family Provider Obstetrics & Gynecology; Referring Provider Obstetrics & Gynecology; Visit Provider Obstetrics & Gynecology
DX: O76 Abnormality in fetal heart rate and rhythm complicating labor and delivery (principal); O71.4 Obstetric high vaginal laceration alone; O60.14X0 Preterm labor third trimester with preterm delivery third trimester, not applicable or unspecified; Z82.79 Family history of other congenital malformations, deformations and chromosomal abnormalities; Z37.0 Single live birth; Z3A.37 37 weeks gestation of pregnancy
CPT/HCPCS: 59025; 59050; 81001; 84112; 85025; 86850; 86900; 87081; 87653; 99218; J7120; G0378; J2405

== ENCOUNTER → 2022-01-17 | Outpatient (CLI) | payer MEDICAID, SELFPAY ==
[2022-01-24 17:42] LABS: HPV Reflexed? NOT INDICATED
== END | disposition home or self-care (01) ==
LOC: LABSPEC 11:39
PROVIDERS: Visit Provider Student in an Organized Health Care Education/Training Program
DX: Z12.4 Encounter for screening for malignant neoplasm of cervix (principal)
CPT/HCPCS: 88175; G0145